=== PATIENT | male | born 1940 | race Caucasian/White ===

== ENCOUNTER → 2017-07-28 | Outpatient (CLI) | payer MEDICARE, OTHER ==
[2017-05-23 13:44] VITALS: BMI 23.7
[~2017-07-28] MED LIST: AMLO-96 PO; AMOX875T60; APPLE CIDER VINEGAR; ASCO-599 PO; BILB100C2 PO; CALC250T7 PO; CALC500T76 PO; CEPH-13 PO; CLOB15GE7 TP; CLON-327 PO; COD1CAPS39 PO; ENOX80DI8 SQ; FLAX100030 PO; FLAX100038 PO; FLU180SY9 IM; FOLI-68 PO; GARL500C11 PO; GINK60CA11 PO; GLUC100026 PO; GLUC500C29 PO; GREE250C4 PO; HERBS; HYDR-385 PO; HYDR-4225 PO; INDO-1 PO; INDO75CA PO; LEVO75TA68 PO; LOR5 PO; METO-253 PO; METO-259 PO; MILK THISTLE300 MG PO; MILK500C2 PO; MULT-885 PO; MULT1CAP41 PO; MULT1TAB54 PO; MUPI15CR10 TP; OMEP-137; PANT40TA65 PO; SALM1CAP3 PO; SAW500CA10 PO; SERT25TA90 PO; THIA100T62 PO; TRIA15OI20 TP; TURM500C7 PO; VIT1CAPS29 PO; VITA1CAP50 PO; WAR5 PO; ZINC1CAP PO; [UNRECOGNIZED DRUG - CODE] PO; [UNRECOGNIZED DRUG - CODE] PO; [UNRECOGNIZED DRUG - CODE] PO; [UNRECOGNIZED DRUG - CODE] PO; [UNRECOGNIZED DRUG - CODE] TP; [UNRECOGNIZED DRUG - OTHER]
[2017-07-28 10:12] LABS: PLATELET COUNT, AUTOMATED 236 K/uL (150-450)
== END ==
LOC: LAB 09:49
PROVIDERS: ATTEND Internal Medicine
DX: I10 Essential (primary) hypertension (principal); E03.9 Hypothyroidism, unspecified; F41.8 Other specified anxiety disorders; I83.009 Varicose veins of unspecified lower extremity with ulcer of unspecified site; F32.9 Major depressive disorder, single episode, unspecified
CPT/HCPCS: 36415; 82040; 82247; 82310; 82374; 82435; 82565; 82947; 84075; 84132; 84155; 84295; 84439; 84443; 84450; 84460; 84520; 85025

== ENCOUNTER → 2017-09-07 | Outpatient (CLI) | payer MEDICARE, OTHER ==
[2017-05-23 13:44] VITALS: BMI 23.7
== END ==
LOC: LAB 16:21
PROVIDERS: ATTEND Nurse Practitioner
DX: C44.310 Basal cell carcinoma of skin of unspecified parts of face (principal)
CPT/HCPCS: 88305

== ENCOUNTER 2017-12-01 00:54 | Emergency (ER) | payer MEDICARE, OTHER ==
[2017-05-23 13:44] VITALS: Wt 72.6 kg
[2017-12-01] MEDS: DEXTROSE 50% 50 ML SYR ONE (01:05)
[2017-12-01] MEDS ORDERED: NS(*) 0.9% 1000 ML BAG 1,000 ML IV ONE (01:10)
[2017-12-01 01:13] LABS: PLATELET COUNT, AUTOMATED 173 K/uL (150-450)
[2017-12-01] MEDS ORDERED: DEXTROSE 50% 50 ML SYR IVP ONE (01:15)
[2017-12-01 01:23] LABS: INR 1.03
[2017-12-01] MEDS ORDERED: DIPHTH/TETANUS/ACEL. PERTUSSIS IM ONLY ONE (01:25)
--- NOTE | 2017-12-01 01:25 | ER Report ---
History and Physical Time Seen By MD: 01:00 HPI/ROS CHIEF COMPLAINT: fall with head injury HISTORY OF PRESENT ILLNESS: This is a 77 year old male. He fell tonight. He does not know what happened, just got dizzy and fell. He has been drinking. He has hematoma and swelling on his forehead on the right and around his right eye with laceration. He walked out of his house with EMS. EMS was concerned about one pupil being larger than the other. He was alert and oriented x4 for them. He denies recent illness. He has a headache, but no other complaints. He can move all extremities and normal sensation and strength. He has no neck or back pain. Allergies: Coded Allergies: No Known Allergies (Verified Allergy, Mild, 12/01/17) Uncoded Allergies: SILK (Allergy, Mild, RASH, 03/29/10) Home Meds Active Scripts Triamcinolone Acetonide 0.1% Oint 15 Gm Tube (TRIAMCINOLONE ACETONIDE 0.1% 15 GM TUBE) 15 Gm Oint...g., 30 GM TP BID for 30 Days, #1 TUBE 2 Refills Use to legs 10-14 days twice a day then DC and use moisturizers. Do not use on face, neck, axillae, or groin. Prov:SHON MEDRANO 07/20/17 Hydroxyzine Hcl (HYDROXYZINE HCL) 25 Mg Tablet, 25 MG PO TID Y for ITCHING, #90 TAB 1 Refill Prov:EDITH LOPEZ MD 07/04/17 Sertraline Hcl (SERTRALINE HCL) 25 Mg Tablet, 1 TAB PO QDAY, #90 TAB 1 Refill Prov:EDITH LOPEZ MD 06/27/17 Multivitamin (MULTI-VITAMIN DAILY) 1 Each Tablet, 1 EACH PO QDAY, #30 TAB Prov:EDITH LOPEZ MD 05/31/17 Reviewed Nurses Notes: Yes Hx Smoking: Yes Smoking Status: Light Tobacco Smoker Hx Substance Use Disorder: No Hx Alcohol Use: Yes Constitutional Vital Sign - Last 24 Hours 12/01/17 12/01/17 12/01/17 12/01/17 01:03 01:10 01:15 01:16 Temp 97.8 Pulse 56 48 Resp 10 14 B/P (MAP) 159/99 (119) 168/99 (122) 158/85 (109) 158/85 Pulse Ox 93 93 O2 Delivery Room Air 12/01/17 12/01/17 12/01/17 12/01/17 01:20 01:25 01:26 01:30 Pulse 50 Resp 8 B/P (MAP) 148/88 (108) 138/92 (107) 156/83 (107) Pulse Ox 97 O2 Flow Rate 2.0 12/01/17 12/01/17 12/01/17 12/01/17 01:35 01:40 01:45 01:50 Pulse 46 Resp 13 B/P (MAP) 140/86 (104) 143/78 (99) 145/94 (111) 148/78 (101) Pulse Ox 96 12/01/17 12/01/17 12/01/17 12/01/17 01:55 02:00 02:05 02:10 Pulse 47 Resp 28 B/P (MAP) 133/70 (91) 129/82 (98) 157/101 (119) 159/88 (111) Pulse Ox 95 12/01/17 12/01/17 12/01/17 12/01/17 02:17 02:30 02:35 02:40 Pulse 44 47 Resp 14 15 B/P (MAP) 152/85 (107) 125/75 (92) 119/70 (86) 100/83 (89) Pulse Ox 95 95 O2 Delivery Nasal Cannula O2 Flow Rate 2 12/01/17 02:45 Pulse 45 B/P (MAP) 110/80 (90) Pulse Ox 94 Physical Exam General Appearance: [The patient is alert.] [No immediate need for airway protection.] [No acute distress.] [Non-toxic in appearance.] [ ] [Eyes:] [Pupils are equal, round.] [Reactive to light.] [No pallor, injection or icterus.] [Extraocular movements are intact.] [ ] [ENT:] [Mucous membranes are moist.] [Normal oral mucosa.] [Posterior oropharynx is normal.] [Normal nasal mucosa.] [Normal tympanic membranes and canals.] [ ] Neck: [Supple and non tender.] [No lymphadenopathy.] Respiratory: [Breathing easily and unlabored.] [Lungs are clear to auscultation. ] [There are no retractions or accessory muscle use.] Cardiovascular: [Regular rate and rhythm.] [No murmurs, gallops or rubs.] [ Normal capillary refill.] [No edema.] [No carotid bruits.] [ ] Gastrointestinal: [Abdomen is soft and non tender.] [Nondistended.] [No rebound or guarding.] [No masses or organomegaly.] [Normal active bowel sounds. ] [No costovertebral angle tenderness with percussion.] [Genitourinary:] [ ] [Neurological:] [Alert and oriented x3.] [Cranial nerves II through XII show no acute deficits on my exam.] [No focal neurologic deficits in the extremities.] [ ] [Skin:] [Warm and dry.] [No rashes.] [Musculoskeletal:] [Extremities are nontender.] [Full range of motion.] [No tenderness in palpation of the cervical, thoracic and lumbar spine.] [ ] [DIFFERENTIAL DIAGNOSIS: After history and physical exam, differential diagnosis was considered for] [ ] Medical Decision Making Data Points Result Diagram: 12/01/17 0056 12/01/17 0056 Laboratory Hematology Test 12/01/17 00:56 12/01/17 02:13 12/01/17 02:15 Red Blood Count 4.48 M/uL (4.00-5.60) Mean Corpuscular Volume 103.6 fL (80.0-96.0) Mean Corpuscular Hemoglobin 37.2 pg (26.0-33.0) Mean Corpuscular Hemoglobin Concent 35.9 g/dL (32.0-36.0) Red Cell Distribution Width 14.5 % (11.5-14.5) Mean Platelet Volume 7.5 fL (7.2-11.1) Neutrophils (%) (Auto) 58.4 % (39.4-72.5) Lymphocytes (%) (Auto) 26.8 % (17.6-49.6) Monocytes (%) (Auto) 9.5 % (4.1-12.4) Eosinophils (%) (Auto) 4.3 % (0.4-6.7) Basophils (%) (Auto) 1.0 % (0.3-1.4) Nucleated RBC Relative Count (auto) 0.2 /100WBC Neutrophils # (Auto) 2.9 K/uL (2.0-7.4) Lymphocytes # (Auto) 1.3 K/uL (1.3-3.6) Monocytes # (Auto) 0.5 K/uL (0.3-1.0) Eosinophils # (Auto) 0.2 K/uL (0.0-0.5) Basophils # (Auto) 0.1 K/uL (0.0-0.1) Nucleated RBC Absolute Count (auto) 0.01 K/uL Peripheral Blood Smear No Y/N Prothrombin Time 13.5 seconds (12.0-14.4) Prothromb Time International Ratio 1.03 Activated Partial Thromboplast Time 31 seconds (23-35) Sodium Level 129 mmol/L (137-145) Potassium Level 4.6 mmol/L (3.5-5.0) Chloride Level 90 mmol/L (98-107) Carbon Dioxide Level 22 mmol/L (22-30) Blood Urea Nitrogen 15 mg/dl (9-21) Creatinine 0.90 mg/dl (0.66-1.25) Glomerular Filtration Rate Calc > 60.0 Random Glucose 83 mg/dl (75-110) Calcium Level 9.1 mg/dl (8.4-10.2) Total Bilirubin 0.8 mg/dl (0.2-1.3) Aspartate Amino Transf (AST/SGOT) 50 U/L (0-35) Alanine Aminotransferase (ALT/SGPT) 44 U/L (0-56) Alkaline Phosphatase 123 U/L (0-126) Total Protein 7.1 gm/dl (6.3-8.2) Albumin 4.2 g/dl (3.5-5.0) Serum Alcohol 246 mg/dl Whole Blood Glucose 86 mg/DL (75-110) Urine Color Straw Urine Clarity Clear Urine pH 5.0 pH (4.8-9.5) Urine Specific [place] 1.004 Urine Protein Negative mg/dL (NEGATIVE) Urine Glucose (UA) Negative mg/dL (NEGATIVE) Urine Ketones Negative mg/dL (NEGATIVE) Urine Blood Negative (NEGATIVE) Urine Nitrite Negative (NEGATIVE) Urine Bilirubin Negative (NEGATIVE) Urine Urobilinogen Negative mg/dL (0.2-1.9) Urine Leukocyte Esterase Negative (NEGATIVE) Urine RBC None /HPF (0-2/HPF) Urine WBC None /HPF (0-5/HPF) Urine Squamous Epithelial Cells None /LPF (</=FEW) Urine Bacteria Negative /HPF (NONE-FEW) Urine Mucus None /HPF (NONE-FEW) Chemistry Test 12/01/17 00:56 12/01/17 02:13 12/01/17 02:15 White Blood Count 5.0 k/uL (4.5-11.0) Red Blood Count 4.48 M/uL (4.00-5.60) Hemoglobin 16.7 g/dL (14.0-18.0) Hematocrit 46.4 % (42.0-52.0) Mean Corpuscular Volume 103.6 fL (80.0-96.0) Mean Corpuscular Hemoglobin 37.2 pg (26.0-33.0) Mean Corpuscular Hemoglobin Concent 35.9 g/dL (32.0-36.0) Red Cell Distribution Width 14.5 % (11.5-14.5) Platelet Count 173 K/uL (150-450) Mean Platelet Volume 7.5 fL (7.2-11.1) Neutrophils (%) (Auto) 58.4 % (39.4-72.5) Lymphocytes (%) (Auto) 26.8 % (17.6-49.6) Monocytes (%) (Auto) 9.5 % (4.1-12.4) Eosinophils (%) (Auto) 4.3 % (0.4-6.7) Basophils (%) (Auto) 1.0 % (0.3-1.4) Nucleated RBC Relative Count (auto) 0.2 /100WBC Neutrophils # (Auto) 2.9 K/uL (2.0-7.4) Lymphocytes # (Auto) 1.3 K/uL (1.3-3.6) Monocytes # (Auto) 0.5 K/uL (0.3-1.0) Eosinophils # (Auto) 0.2 K/uL (0.0-0.5) Basophils # (Auto) 0.1 K/uL (0.0-0.1) Nucleated RBC Absolute Count (auto) 0.01 K/uL Peripheral Blood Smear No Y/N Prothrombin Time 13.5 seconds (12.0-14.4) Prothromb Time International Ratio 1.03 Activated Partial Thromboplast Time 31 seconds (23-35) Glomerular Filtration Rate Calc > 60.0 Calcium Level 9.1 mg/dl (8.4-10.2) Total Bilirubin 0.8 mg/dl (0.2-1.3) Aspartate Amino Transf (AST/SGOT) 50 U/L (0-35) Alanine Aminotransferase (ALT/SGPT) 44 U/L (0-56) Alkaline Phosphatase 123 U/L (0-126) Total Protein 7.1 gm/dl (6.3-8.2) Albumin 4.2 g/dl (3.5-5.0) Serum Alcohol 246 mg/dl Whole Blood Glucose 86 mg/DL (75-110) Urine Color Straw Urine Clarity Clear Urine pH 5.0 pH (4.8-9.5) Urine Specific [place] 1.004 Urine Protein Negative mg/dL (NEGATIVE) Urine Glucose (UA) Negative mg/dL (NEGATIVE) Urine Ketones Negative mg/dL (NEGATIVE) Urine Blood Negative (NEGATIVE) Urine Nitrite Negative (NEGATIVE) Urine Bilirubin Negative (NEGATIVE) Urine Urobilinogen Negative mg/dL (0.2-1.9) Urine Leukocyte Esterase Negative (NEGATIVE) Urine RBC None /HPF (0-2/HPF) Urine WBC None /HPF (0-5/HPF) Urine Squamous Epithelial Cells None /LPF (</=FEW) Urine Bacteria Negative /HPF (NONE-FEW) Urine Mucus None /HPF (NONE-FEW) Coagulation Test 12/01/17 00:56 Prothrombin Time 13.5 seconds Prothromb Time International Ratio 1.03 Activated Partial Thromboplast Time 31 seconds Toxicology Test 12/01/17 00:56 Serum Alcohol 246 mg/dl Urinalysis Test 12/01/17 02:15 Urine Color Straw Urine Clarity Clear Urine pH 5.0 pH (4.8-9.5) Urine Specific [place] 1.004 Urine Protein Negative mg/dL (NEGATIVE) Urine Glucose (UA) Negative mg/dL (NEGATIVE) Urine Ketones Negative mg/dL (NEGATIVE) Urine Blood Negative (NEGATIVE) Urine Nitrite Negative (NEGATIVE) Urine Bilirubin Negative (NEGATIVE) Urine Urobilinogen Negative mg/dL (0.2-1.9) Urine Leukocyte Esterase Negative (NEGATIVE) Urine RBC None /HPF (0-2/HPF) Urine WBC None /HPF (0-5/HPF) Urine Squamous Epithelial Cells None /LPF (</=FEW) Urine Bacteria Negative /HPF (NONE-FEW) Urine Mucus None /HPF (NONE-FEW) EKG/Imaging EKG Interpretation 12 lead EKG: Rhythm: Sinus bradycardia, first-degree AV block, rate 51 [place]: normal QRS: normal ST segments: Nonspecific, no ST elevation or depression noted Imaging HEAD CT: Indication: Injury. Technique: Contiguous axial sections were obtained from the base to the vertex without contrast enhancement. One of the following dose optimization techniques was utilized in the performance of this exam: Automated exposure control; adjustment of the mA and/ or kV according to the patient's size; or use of an iterative reconstruction technique. Specific details can be referenced in the facility's radiology CT exam operational policy. Comparison: 05/22/2017 Findings: There is no evidence of intra-axial or extra-axial hemorrhage. 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 No new focal areas of decreased or increased attenuation are identified. There is no evidence of mass, edema, or shift of the midline structures. The size, shape, and configuration of the ventricular system are normal. There is no evidence of fracture or other acute deformity. There is chronic opacification of the left maxillary sinus. The paranasal sinuses and mastoid air cells are otherwise unchanged. Impression: No acute deformity or significant change. Report Dictated By: Douglas Ruiz MD at 12/01/2017 1:14 AM ED Course/Re-evaluation Clinical Indication for ER IV: Hydration, IV Access ED Course The patient's alcohol level was elevated. Labs otherwise negative. Head CT negative as well. Laceration over the right eye in the eyebrow area was repaired with dermabond. Tetanus booster given. Decision to Disposition Date: December 01, 2017 Decision to Disposition Time: 02:43 Depart Departure Latest Vital Signs Vital Signs Date Time Temp Pulse Resp B/P (MAP) Pulse Ox O2 Delivery O2 Flow Rate FiO2 12/01/17 02:45 45 110/80 (90) 94 12/01/17 02:30 15 12/01/17 02:17 Nasal Cannula 2 12/01/17 01:16 97.8 Impression: Primary Impression: Fall Additional Impressions: Alcohol intoxication Eyebrow laceration Condition: Improved Disposition: HOME OR SELF-CARE Referrals: EDITH LOPEZ MD (PCP) Patient Instructions: Alcohol Intoxication (ED), Laceration Without Closure (ED ) Problem Qualifiers Primary Impression: Fall Encounter type: initial encounter Qualified Codes: W19.XXXA - Unspecified fall, initial encounter Additional Impressions: Alcohol intoxication Complication of substance-induced condition: uncomplicated Qualified Codes: F10.920 - Alcohol use, unspecified with intoxication, uncomplicated Eyebrow laceration Encounter type: initial encounter Laterality: right Qualified Codes: S01.111A - Laceration without foreign body of right eyelid and periocular area, initial encounter JEFFRY SOLIZ MD December 01, 2017 01:25
--- NOTE | 2017-12-01 01:39 | EKG ---
FACILITY: [facility] PATIENT NAME: JEROMY COX : [id number] MR: [id number] V: [id number] EXAM DATE: ORDERING PHYSICIAN: JEFFRY SOLIZ TECHNOLOGIST: LEEANNE Test Reason : FALL Blood Pressure : / mmHG Vent. Rate : 051 BPM Atrial Rate : 051 BPM P-R Int : 322 ms QRS Dur : 084 ms QT Int : 476 ms P-R-T Axes : 010 -09 050 degrees QTc Int : 438 ms Sinus bradycardia with 1st degree AV block Nonspecific ST abnormality Abnormal ECG Similar to previous EKG 05/22/17 Confirmed by YOSI LARSON ([id number] on 12/01/2017 6:19:56 AM Referred By: Confirmed By:YOSI LARSON
--- NOTE | 2017-12-01 02:44 | RADIOLOGY IMAGING REPORT ---
FACILITY: [facility] PATIENT NAME: Kenny Billings : 1940 MR: [id number] V: [id number] EXAM DATE: ORDERING PHYSICIAN: JEFFRY SOLIZ TECHNOLOGIST: Location: [facility] Patient: Kenny Billings : 1940 Visit/Account:[id number] Date of Sevice: 12/01/[address]: Indication: Injury. Technique: Contiguous axial sections were obtained from the base to the vertex without contrast enhan cement. One of the following dose optimization techniques was utilized in the performance of this exam: Autom ated exposure control; adjustment of the mA and/or kV according to the patient's size; or use of an i terative reconstruction technique. Specific details can be referenced in the facility's radiology CT exam operational policy. Comparison: 05/22/2017 Findings: There is no evidence of intra-axial or extra-axial hemorrhage. There is chronic cerebral co rtical atrophy and periventricular white matter disease. No new focal areas of decreased or increased attenuation are identified. There is no evidence of mass, edema, or shift of the midline structures. The size, shape, and configuration of the ventricular system are normal. There is no evidence of fra cture or other acute deformity. There is chronic opacification of the left maxillary sinus. The paran garcia sinuses and mastoid air cells are otherwise unchanged. Impression: No acute deformity or significant change. Report Dictated By: Douglas Ruiz MD at 12/01/2017 1:14 AM Report E-Signed By: Douglas Ruiz MD at 12/01/2017 1:19 AM [id number]
[2017-12-01 02:45] VITALS: BP 110/80
== END 2017-12-01 03:00 | disposition home or self-care (01) ==
LOC: ER 00:58
DX: F10.920 Alcohol use, unspecified with intoxication, uncomplicated (principal); S01.111A Laceration without foreign body of right eyelid and periocular area, initial encounter; W18.30XA Fall on same level, unspecified, initial encounter; S09.90XA Unspecified injury of head, initial encounter; R00.1 Bradycardia, unspecified; I44.0 Atrioventricular block, first degree
CPT/HCPCS: 12013; 36416; 70450; 81001; 82948; 85025; 85610; 85730; 90715; 93005; 99284; G0480; J7030; 80320; 82040; 82247; 82310; 82374; 82435; 82565; 82947; 84075; 84132; 84155; 84295; 84450; 84460; 84520; 90471; 96361; 96374

== ENCOUNTER → 2017-12-01 | Outpatient (CLI) | payer MEDICARE, OTHER ==
[2017-05-23 13:44] VITALS: BMI 23.7
[~2017-12-01] MED LIST changes: +[UNRECOGNIZED DRUG - CODE] PO; -[UNRECOGNIZED DRUG - CODE] PO
== END ==
LOC: AMB 00:26
PROVIDERS: ATTEND Nurse Practitioner
DX: F10.129 Alcohol abuse with intoxication, unspecified (principal); E16.2 Hypoglycemia, unspecified; R03.0 Elevated blood-pressure reading, without diagnosis of hypertension
CPT/HCPCS: A0425; A0427

== ENCOUNTER 2018-01-24 16:13 | Inpatient (IN) | payer MEDICARE, OTHER ==
[~2018-01-24] VITALS: Ht 177.8 cm; Wt 71.4 kg
--- NOTE | 2018-01-24 16:30 | ER Report ---
History and Physical Time Seen By : 16:24 Hx. of Stated Complaint: PT PRESENTS WITH HX OF FALLING A FEW DAYS AGO. STATES HAS BEEN DRINKING MORE THAN USUAL HPI/ROS CHIEF COMPLAINT: Fall HISTORY OF PRESENT ILLNESS: This is a 77-year-old male who presents to the emergency department, with his sister for a fall. Patient states that about 2 days ago he had "a lot to drink" and "blacked out", doesn't remember falling. Since then he's had increased shortness of breath right-sided chest pain, concerned about broken ribs significant amount of bruising to the right chest down to the right lower quadrant. Contusion, abrasion and skin tear to the right forearm. Denies aches, chills, nausea or vomiting. No dysuria. Patient also states he drinks alcohol almost every day, states his last drink was yesterday morning. REVIEW OF SYSTEMS: Constitutional: No fever, no chills. Eyes: No discharge. ENT: No sore throat. Cardiovascular: No chest pain, no palpitations. Respiratory: As above. Gastrointestinal: No abdominal pain, no vomiting. Genitourinary: No hematuria. Musculoskeletal: As above. Skin: As above. Neurological: As above. Allergies: Coded Allergies: No Known Allergies (Verified Allergy, Mild, 12/01/17) Uncoded Allergies: DONY (Allergy, Mild, RASH, 03/29/10) Home Meds Active Scripts Lidocaine (Lidocaine) 5 % Adh..patch, 1 PATCH TOP Q12H Y for prn, #5 PATCH One patch to the affected area, on for 12 hours off for 12 hours. Prov:MAEVE CALDERON REEL SLITTER-BC 01/24/18 Discontinued Scripts Triamcinolone Acetonide 0.1% Oint 15 Gm Tube (TRIAMCINOLONE ACETONIDE 0.1% 15 GM TUBE) 15 Gm Oint...g., 30 GM TP BID for 30 Days, #1 TUBE 2 Refills Use to legs 10-14 days twice a day then DC and use moisturizers. Do not use on face, neck, axillae, or groin. Prov:SHON MEDRANO NPC 07/20/17 Hydroxyzine Hcl (HYDROXYZINE HCL) 25 Mg Tablet, 25 MG PO TID Y for ITCHING, #90 TAB 1 Refill Prov:EDITH MORALES MD 07/04/17 Sertraline Hcl (SERTRALINE HCL) 25 Mg Tablet, 1 TAB PO QDAY, #90 TAB 1 Refill Prov:EDITH MORALES MD 06/27/17 Multivitamin (MULTI-VITAMIN DAILY) 1 Each Tablet, 1 EACH PO QDAY, #30 TAB Prov:EDITH MORALES MD 05/31/17 Past Medical/Surgical History Patient has a past medical and surgical history of crucial TIA, migraines, DVT, hypertension, Vincent's esophagus, GERD, left total knee, arthritis, fracture ribs, ankle, right femur, wears glasses, alcohol abuse, depression, sleep disturbances, appendectomy, EGD, tonsillectomy. Hx Smoking: Yes Smoking Status: Light Tobacco Smoker Hx Substance Use Disorder: No Hx Alcohol Use: Yes Constitutional Vital Sign - Last 24 Hours 01/24/18 01/24/18 01/24/18 01/24/18 16:21 16:22 16:30 16:43 Temp 98.0 Pulse 74 63 Resp 20 B/P (MAP) 142/83 142/83 (102) 132/80 (97) Pulse Ox 83 93 O2 Delivery Room Air 01/24/18 01/24/18 01/24/18 01/24/18 17:00 17:13 17:30 18:00 Pulse 57 B/P (MAP) 128/69 (88) 132/73 (92) 146/80 (102) Pulse Ox 94 01/24/18 01/24/18 01/24/18 01/24/18 18:05 18:20 18:30 18:35 Pulse ??? 62 65 B/P (MAP) 146/82 (103) Pulse Ox 95 94 94 01/24/18 01/24/18 01/24/18 01/24/18 18:50 19:00 19:05 19:10 Pulse 60 63 66 B/P (MAP) 159/85 (109) Pulse Ox 93 94 94 01/24/18 01/24/18 01/24/18 01/24/18 20:00 20:09 20:15 20:45 Pulse 68 71 71 B/P (MAP) 155/100 (118) Pulse Ox 83 82 89 84 O2 Delivery Room Air 01/24/18 01/24/18 20:47 20:48 Temp 99.7 Pulse 73 Physical Exam General Appearance: The patient is alert, has no immediate need for airway protection and no signs of toxicity. Eyes: Pupils equal and round no pallor or injection. ENT, Mouth: Mucous membranes are moist. Respiratory: There are no retractions, lungs are clear to auscultation. Cardiovascular: Regular rate and rhythm, no murmurs, clicks or rubs. Gastrointestinal: Abdomen is firm on right upper quadrant with significant tenderness in the right upper, into the right lower quadrant. No masses, bowel sounds normal. Neurological: Alert and oriented 4. Moving all extremities. Following all commands. No focal neuro deficits. Skin: Warm and dry, no rashes. Contusions, abrasions and skin tear to the right forearm. Contusions, purple in color, to the right chest along the lateral pectoralis down into the right upper and lower abdomen. Musculoskeletal: Neck is supple non tender. Right sided chest pain with palpation along the right lateral pectoralis down to the right costal margin. Extremities are nontender, nonswollen and have full range of motion. DIFFERENTIAL DIAGNOSIS: After history and physical exam differential diagnosis was considered for contusion, rib fracture, pneumothorax, hepatic injury and kidney injury. Medical Decision Making Data Points Result Diagram: 01/24/18 1659 01/24/18 1659 Laboratory Hematology Test 01/24/18 16:59 01/24/18 18:30 Red Blood Count 4.14 M/uL (4.00-5.60) Mean Corpuscular Volume 105.9 fL (80.0-96.0) Mean Corpuscular Hemoglobin 38.2 pg (26.0-33.0) Mean Corpuscular Hemoglobin Concent 36.1 g/dL (32.0-36.0) Red Cell Distribution Width 14.3 % (11.5-14.5) Mean Platelet Volume 7.2 fL (7.2-11.1) Neutrophils (%) (Auto) 75.7 % (39.4-72.5) Lymphocytes (%) (Auto) 12.6 % (17.6-49.6) Monocytes (%) (Auto) 9.4 % (4.1-12.4) Eosinophils (%) (Auto) 1.1 % (0.4-6.7) Basophils (%) (Auto) 1.2 % (0.3-1.4) Nucleated RBC Relative Count (auto) 0.1 /100WBC Neutrophils # (Auto) 5.0 K/uL (2.0-7.4) Lymphocytes # (Auto) 0.8 K/uL (1.3-3.6) Monocytes # (Auto) 0.6 K/uL (0.3-1.0) Eosinophils # (Auto) 0.1 K/uL (0.0-0.5) Basophils # (Auto) 0.1 K/uL (0.0-0.1) Nucleated RBC Absolute Count (auto) 0.01 K/uL Sodium Level 137 mmol/L (137-145) Potassium Level 4.4 mmol/L (3.5-5.0) Chloride Level 98 mmol/L (98-107) Carbon Dioxide Level 25 mmol/L (22-30) Blood Urea Nitrogen 15 mg/dl (9-21) Creatinine 1.00 mg/dl (0.66-1.25) Glomerular Filtration Rate Calc > 60.0 Random Glucose 96 mg/dl (75-110) Calcium Level 8.2 mg/dl (8.4-10.2) Total Bilirubin 0.7 mg/dl (0.2-1.3) Aspartate Amino Transf (AST/SGOT) 38 U/L (0-35) Alanine Aminotransferase (ALT/SGPT) 31 U/L (0-56) Alkaline Phosphatase 119 U/L (0-126) Total Protein 6.4 g/dl (6.3-8.2) Albumin 3.6 g/dl (3.5-5.0) Serum Alcohol 111 mg/dl Urine Color Yellow Urine Clarity Clear Urine pH 6.0 pH (4.8-9.5) Urine Specific [place] 1.023 Urine Protein Negative mg/dL (NEGATIVE) Urine Glucose (UA) Negative mg/dL (NEGATIVE) Urine Ketones Negative mg/dL (NEGATIVE) Urine Blood Negative (NEGATIVE) Urine Nitrite Negative (NEGATIVE) Urine Bilirubin Negative (NEGATIVE) Urine Urobilinogen Negative mg/dL (0.2-1.9) Urine Leukocyte Esterase Negative (NEGATIVE) Urine RBC <1 /HPF (0-2/HPF) Urine WBC <1 /HPF (0-5/HPF) Urine Squamous Epithelial Cells None /LPF (</=FEW) Urine Bacteria Negative /HPF (NONE-FEW) Urine Mucus None /HPF (NONE-FEW) Chemistry Test 01/24/18 16:59 01/24/18 18:30 White Blood Count 6.6 k/uL (4.5-11.0) Red Blood Count 4.14 M/uL (4.00-5.60) Hemoglobin 15.8 g/dL (14.0-18.0) Hematocrit 43.8 % (42.0-52.0) Mean Corpuscular Volume 105.9 fL (80.0-96.0) Mean Corpuscular Hemoglobin 38.2 pg (26.0-33.0) Mean Corpuscular Hemoglobin Concent 36.1 g/dL (32.0-36.0) Red Cell Distribution Width 14.3 % (11.5-14.5) Platelet Count 191 K/uL (150-450) Mean Platelet Volume 7.2 fL (7.2-11.1) Neutrophils (%) (Auto) 75.7 % (39.4-72.5) Lymphocytes (%) (Auto) 12.6 % (17.6-49.6) Monocytes (%) (Auto) 9.4 % (4.1-12.4) Eosinophils (%) (Auto) 1.1 % (0.4-6.7) Basophils (%) (Auto) 1.2 % (0.3-1.4) Nucleated RBC Relative Count (auto) 0.1 /100WBC Neutrophils # (Auto) 5.0 K/uL (2.0-7.4) Lymphocytes # (Auto) 0.8 K/uL (1.3-3.6) Monocytes # (Auto) 0.6 K/uL (0.3-1.0) Eosinophils # (Auto) 0.1 K/uL (0.0-0.5) Basophils # (Auto) 0.1 K/uL (0.0-0.1) Nucleated RBC Absolute Count (auto) 0.01 K/uL Glomerular Filtration Rate Calc > 60.0 Calcium Level 8.2 mg/dl (8.4-10.2) Total Bilirubin 0.7 mg/dl (0.2-1.3) Aspartate Amino Transf (AST/SGOT) 38 U/L (0-35) Alanine Aminotransferase (ALT/SGPT) 31 U/L (0-56) Alkaline Phosphatase 119 U/L (0-126) Total Protein 6.4 g/dl (6.3-8.2) Albumin 3.6 g/dl (3.5-5.0) Serum Alcohol 111 mg/dl Urine Color Yellow Urine Clarity Clear Urine pH 6.0 pH (4.8-9.5) Urine Specific [place] 1.023 Urine Protein Negative mg/dL (NEGATIVE) Urine Glucose (UA) Negative mg/dL (NEGATIVE) Urine Ketones Negative mg/dL (NEGATIVE) Urine Blood Negative (NEGATIVE) Urine Nitrite Negative (NEGATIVE) Urine Bilirubin Negative (NEGATIVE) Urine Urobilinogen Negative mg/dL (0.2-1.9) Urine Leukocyte Esterase Negative (NEGATIVE) Urine RBC <1 /HPF (0-2/HPF) Urine WBC <1 /HPF (0-5/HPF) Urine Squamous Epithelial Cells None /LPF (</=FEW) Urine Bacteria Negative /HPF (NONE-FEW) Urine Mucus None /HPF (NONE-FEW) Toxicology Test 01/24/18 16:59 Serum Alcohol 111 mg/dl Urinalysis Test 01/24/18 18:30 Urine Color Yellow Urine Clarity Clear Urine pH 6.0 pH (4.8-9.5) Urine Specific [place] 1.023 Urine Protein Negative mg/dL (NEGATIVE) Urine Glucose (UA) Negative mg/dL (NEGATIVE) Urine Ketones Negative mg/dL (NEGATIVE) Urine Blood Negative (NEGATIVE) Urine Nitrite Negative (NEGATIVE) Urine Bilirubin Negative (NEGATIVE) Urine Urobilinogen Negative mg/dL (0.2-1.9) Urine Leukocyte Esterase Negative (NEGATIVE) Urine RBC <1 /HPF (0-2/HPF) Urine WBC <1 /HPF (0-5/HPF) Urine Squamous Epithelial Cells None /LPF (</=FEW) Urine Bacteria Negative /HPF (NONE-FEW) Urine Mucus None /HPF (NONE-FEW) EKG/Imaging Imaging Location: [facility] - [place], [place] Patient: Kenny Billings : 1940 Visit/Account:[id number] Date of Sevice: 01/24/[address] scan without contrast HISTORY: Fall 3 days ago COMPARISONS: December 01, 2017 TECHNIQUE: Non-contrast head CT was performed with sagittal and coronal reformations. One of the following dose optimization techniques was utilized in the performance of this exam: automated exposure control; adjustment of the mA and/ or kV according to patient size; or use of iterative reconstruction technique. Specific details can be referenced in the facility's radiology CT exam operational policy. FINDINGS: There is no intracranial hemorrhage, hydrocephalus or midline shift. The basal cisterns, kearney-white differentiation, and convexity sulci are maintained. Normal orbital soft tissues. Unchanged moderate patchy white matter hypoattenuation. Clear mastoid air cells. Moderate left maxillary sinus mucosal thickening. Chronic right lamina papyracea fracture deformity as before. No acute fracture. IMPRESSION: No acute intracranial abnormality. Moderate unchanged chronic small vessel ischemic change. Unchanged chronic right lamina papyracea fracture deformity. Report Dictated By: Andrae Lynn MD at 01/24/2018 6:29 PM Report E-Signed By: Andrae Lynn MD at 01/24/2018 6:34 PM WSN:[id number] EXAMINATION: CT chest, abdomen and pelvis with IV contrast HISTORY: Fall, right chest pain, abdomen pain TECHNIQUE: CT was obtained through the chest, abdomen and pelvis with intravenous contrast. Sagittal and coronal MPR reformatted images generated. 75 mL isovue 370 was injected. One of the following dose optimization techniques was utilized in the performance of this exam: automated exposure control; adjustment of the mA and/ or kV according to patient size; or use of iterative reconstruction technique. Specific details can be referenced in the facility's radiology CT exam operational policy. COMPARISON: Chest CT May 22, 2017 FINDINGS: Chest: Lower neck: Normal. Heart /pericardium/aorta/great vessels: Mildly enlarged heart, mild coronary artery calcification. Mediastinum: Large unchanged gastric paraesophageal hernia. Unchanged mild diffuse esophageal wall thickening. Lymph node assessment: Normal. Pleura: Trace new right pleural fluid. Lungs: Unchanged medial right upper lobe scarring. New right middle lobe subsegmental atelectasis. Medial right middle lobe scarring similar to prior. New subsegmental atelectasis in the right lower lobe. Mild new right lower lobe probable atelectasis, image 78. . Chest wall: Normal. Musculoskeletal: Left posterior 11th chronic rib fracture deformity. Multiple chronic right rib fracture deformities as before. Acute nondisplaced right lateral ninth and 10th rib fractures. Abdomen/pelvis: Spleen: Normal. Adrenal glands: Normal. Pancreas: Normal. Kidneys: Bilateral cysts. Mild left renal pelvis and left intrarenal collecting system dilatation. Gallbladder: Normal. Liver: Left hepatic lobe cyst. Vessels: Normal for age. Lymph node assessment: Normal. Bowel including small bowel, colon and appendix: Gastric hernia as described above. Normal small bowel. Appendix not visualized. Normal colon. Peritoneum / retroperitoneum / mesentery: Normal. Pelvic structures: Normal bladder, enlarged prostate gland measures 6.2 cm transverse. Normal rectum. No pelvic fluid or adenopathy. Body wall: Normal. Musculoskeletal: No fracture or osseous destruction. Moderate L2-3 disc space degeneration and moderate to severe L4-5 and L5-S1 facet arthropathy. IMPRESSION: 1. Acute nondisplaced right lateral ninth and 10th rib fractures. 2. Trace right new pleural fluid. 3. No additional acute abnormality in the chest, abdomen or pelvis. 4. Large unchanged gastric paraesophageal hernia. 5. Enlarged prostate gland measures 6.2 cm. Report Dictated By: Andrae Lynn MD at 01/24/2018 6:39 PM Report E-Signed By: Andrae yLnn MD at 01/24/2018 6:56 PM WSN:[id number] EXAMINATION: CT Cervical spine without intravenous contrast HISTORY: Fall COMPARISON: None. TECHNIQUE: Axial images were obtained from the skull base through the upper thoracic spine without IV contrast administration. Coronal and sagittal reformatted images were generated from the axial source data. One of the following dose optimization techniques was utilized in the performance of this exam: automated exposure control; adjustment of the mA and/ or kV according to patient size; or use of iterative reconstruction technique. Specific details can be referenced in the facility's radiology CT exam operational policy. FINDINGS: Vertebral bodies and posterior elements: Normal vertebral body heights. No fracture or osseous destruction. Alignment: Slight retrolisthesis of C3 on C4. Slight anterolisthesis of C5 on C6 and C7 on T1. Disc Spaces: Severe C3-4, C6-7 and C7-T1 disc space degeneration. Multilevel facet arthropathy. Multilevel degenerative foraminal narrowing. Soft tissues: Normal. Visualized upper chest: Normal. IMPRESSION: No acute fracture or acute abnormality. Report Dictated By: Andrae Lynn MD at 01/24/2018 6:34 PM Report E-Signed By: Andrae Lynn MD at 01/24/2018 6:39 PM WSN:[id number] ED Course/Re-evaluation Clinical Indication for ER IV: IV Access ED Course The patient was admitted to room. A history and physical were obtained. Differential diagnoses were considered. An IV was started. A CBC, CMP, UA were obtained. CBC showing MCV 105.9, chemistry showing AST 38, ALT 31 serum alcohol [address] of the head neck negative for any acute abnormalities. Chest abdomen pelvis CT showing acute nondisplaced right lateral 9th and 10th rib fractures, trace right new pleural fluid. I did review these results with the patient and his sister. As we were getting the patient ready for discharge, which the patient was agreeable to his oxygen saturation dropped to about 82% on room air. Patient was also shaky. I did order home oxygen therapy for the patient. The sister was concerned that the patient would not be able to manage his home oxygen therapy at home and was very concerned about his shakiness and inability to manage his care on his own. I did contact Dr. March, the hospitalist on-call as below he has accepted the patient into the hospitalist services and the patient will be admitted to the medical unit. The patient was agreeable with this plan of care and admitted to the medical unit. Patient was given a lidocaine patch for the right rib discomfort. 01/24/2018 8:41:25 pm I did speak with Dr. March, the on-call hospitalist regarding the patient's case as the sister is very concerned about having the patient go home, she doesn't feel that he is steady enough to manage the oxygen therapy at home, he is very shaky in the emergency department. Patient is willing to stay in the hospital if indicated. Patient is unsure if he he will be able to manage his therapy at home. 01/24/2018 9:13:[address] March did come and evaluate the patient, he has agreed to admit the patient to the hospitalist service on the medical floor for right rib fractures, hypoxia and unsteadiness. Decision to Disposition Date: Jan 24, 2018 Decision to Disposition Time: 21:14 Depart Departure Latest Vital Signs Vital Signs Date Time Temp Pulse Resp B/P (MAP) Pulse Ox O2 Delivery O2 Flow Rate FiO2 01/24/18 20:48 73 01/24/18 20:47 99.7 01/24/18 20:45 155/100 (118) 84 01/24/18 20:09 Room Air 01/24/18 16:21 20 Impression: Primary Impression: Right rib fracture Additional Impressions: Alcohol abuse Fall Hypoxia Condition: Improved Disposition: Admitted from ER Referrals: EDITH MORALES MD (PCP) 5 Days New Scripts Lidocaine (Lidocaine) 5 % Adh..patch 1 PATCH TOP Q12H Y for prn, #5 PATCH One patch to the affected area, on for 12 hours off for 12 hours. Prov: MAEVE CALDERON-WARD 01/24/18 Departure Forms: ER Transition Record, Home Oxygen, Nebulizer RX, Durable Medical Equipment-Oxygen: Oxygen Concentrator, Portable Oxygen Gas Reason for Use/Diagnosis: Rib fracture(s), fall, hypoxia Start Date of the Order: Jan 24, 2018 Dosage or Concentration (if applicable) - LPM: 3 Route of Administration (if applicable): Nasal Cannula Frequency of Use: Continuous Duration Home O2 Required: 30 Duration Units: Days Room Air Oxygen Saturation: 82 ER Prescribing Physician's Name: Other NPI Numbers for Local ER MDs: Other Medications Reconciliation, Patient Portal Information Patient Instructions: Abuse of Alcohol (ED), Fall Prevention (ED), Rib Fracture (ED) Additional Instructions: Drink plenty of water. Get plenty of rest. Please avoid drinking alcohol. Use the lidocaine patch as needed for pain control, on for 12 hours off for 12 hours. If your watching television, every time a commercial comes on when she do cough and deep breathe 5 times. Use a pillow or a week as a splint when coughing or deep breathing. Be very cautious using ibuprofen for pain. Avoid using Tylenol as your liver has been damaged due to alcohol. Follow-up with Dr. Morales within one week. Return to the emergency department for any other concerns or worsening symptoms. Problem Qualifiers Primary Impression: Right rib fracture Encounter type: initial encounter Rib fracture type: multiple ribs Fracture type: closed Qualified Codes: S22.41XA - Multiple fractures of ribs , right side, initial encounter for closed fracture Additional Impressions: Fall Encounter type: initial encounter Qualified Codes: W19.XXXA - Unspecified fall, initial encounter MAEVE CALDERONP-BC Jan 24, 2018 16:30
[2018-01-24] MEDS ORDERED: IOPAMIDOL 76% 75 ML INFUS BTL 75 ML ONE (17:01)
[2018-01-24 17:20] LABS: PLATELET COUNT, AUTOMATED 191 K/uL (150-450)
--- NOTE | 2018-01-24 18:38 | RADIOLOGY IMAGING REPORT ---
FACILITY: [facility] - [place] PATIENT NAME: Kenny Billings : 1940 MR: [id number] V: [id number] EXAM DATE: ORDERING PHYSICIAN: MAEVE CALDERON TECHNOLOGIST: Location: [facility] Patient: Kenny Billings : 1940 Visit/Account:[id number] Date of Sevice: 01/24/[address] scan without contrast HISTORY: Fall 3 days ago COMPARISONS: December 01, 2017 TECHNIQUE: Non-contrast head CT was performed with sagittal and coronal reformations. One of the following dose optimization techniques was utilized in the performance of this exam: autom ated exposure control; adjustment of the mA and/or kV according to patient size; or use of iterative reconstruction technique. Specific details can be referenced in the facility's radiology CT exam ope rational policy. FINDINGS: There is no intracranial hemorrhage, hydrocephalus or midline shift. The basal cisterns, kearney-white differentiation, and convexity sulci are maintained. Normal orbital soft tissues. Unchanged moderate patchy white matter hypoattenuation. Clear mastoid air cells. Moderate left maxillary sinus mucosal thickening. Chronic right lamina papyr acea fracture deformity as before. No acute fracture. IMPRESSION: No acute intracranial abnormality. Moderate unchanged chronic small vessel ischemic change. Unchanged chronic right lamina papyracea fracture deformity. Report Dictated By: Andrae Lynn MD at 01/24/2018 6:29 PM Report E-Signed By: Andrae Lynn MD at 01/24/2018 6:34 PM WSN:[id number]
--- NOTE | 2018-01-24 18:43 | RADIOLOGY IMAGING REPORT ---
FACILITY: [facility] PATIENT NAME: Kenny Billings : 1940 MR: [id number] V: [id number] EXAM DATE: ORDERING PHYSICIAN: MAEVE CALDERON TECHNOLOGIST: Location: [facility] Patient: Kenny Billings : 1940 Visit/Account:[id number] Date of Sevice: 01/24/2018 EXAMINATION: CT Cervical spine without intravenous contrast HISTORY: Fall COMPARISON: None. TECHNIQUE: Axial images were obtained from the skull base through the upper thoracic spine without I V contrast administration. Coronal and sagittal reformatted images were generated from the axial sour ce data. One of the following dose optimization techniques was utilized in the performance of this exam: autom ated exposure control; adjustment of the mA and/or kV according to patient size; or use of iterative reconstruction technique. Specific details can be referenced in the facility's radiology CT exam ope rational policy. FINDINGS: Vertebral bodies and posterior elements: Normal vertebral body heights. No fracture or osseous destr uction. Alignment: Slight retrolisthesis of C3 on C4. Slight anterolisthesis of C5 on C6 and C7 on T1. Disc Spaces: Severe C3-4, C6-7 and C7-T1 disc space degeneration. Multilevel facet arthropathy. Multi level degenerative foraminal narrowing. Soft tissues: Normal. Visualized upper chest: Normal. IMPRESSION: No acute fracture or acute abnormality. Report Dictated By: Andrae Lynn MD at 01/24/2018 6:34 PM Report E-Signed By: Andrae Lynn MD at 01/24/2018 6:39 PM WSN:[id number]
--- NOTE | 2018-01-24 18:59 | RADIOLOGY IMAGING REPORT ---
[place] [facility] [place] NAME: Kenny Billings : 1940 MR: [id number] V: [id number] EXAM DATE: ORDERING PHYSICIAN: MAEVE CALDERON TECHNOLOGIST: Location: [facility] Patient: Kenny Billings : 1940 Visit/Account:[id number] Date of Sevice: 01/24/2018 EXAMINATION: CT chest, abdomen and pelvis with IV contrast HISTORY: Fall, right chest pain, abdomen pain TECHNIQUE: CT was obtained through the chest, abdomen and pelvis with intravenous contrast. Sagitt al and coronal MPR reformatted images generated. 75 mL isovue 370 was injected. One of the following dose optimization techniques was utilized in the performance of this exam: autom ated exposure control; adjustment of the mA and/or kV according to patient size; or use of iterative reconstruction technique. Specific details can be referenced in the facility's radiology CT exam ope rational policy. COMPARISON: Chest CT May 22, 2017 FINDINGS: Chest: Lower neck: Normal. Heart /pericardium/aorta/great vessels: Mildly enlarged heart, mild coronary artery calcification. Mediastinum: Large unchanged gastric paraesophageal hernia. Unchanged mild diffuse esophageal wall th ickening. Lymph node assessment: Normal. Pleura: Trace new right pleural fluid. Lungs: Unchanged medial right upper lobe scarring. New right middle lobe subsegmental atelectasis. M edial right middle lobe scarring similar to prior. New subsegmental atelectasis in the right lower lo be. Mild new right lower lobe probable atelectasis, image 78. . Chest wall: Normal. Musculoskeletal: Left posterior 11th chronic rib fracture deformity. Multiple chronic right rib frac ture deformities as before. Acute nondisplaced right lateral ninth and 10th rib fractures. Abdomen/pelvis: Spleen: Normal. Adrenal glands: Normal. Pancreas: Normal. Kidneys: Bilateral cysts. Mild left renal pelvis and left intrarenal collecting system dilatation. Gallbladder: Normal. Liver: Left hepatic lobe cyst. Vessels: Normal for age. Lymph node assessment: Normal. Bowel including small bowel, colon and appendix: Gastric hernia as described above. Normal small mak l. Appendix not visualized. Normal colon. Peritoneum / retroperitoneum / mesentery: Normal. Pelvic structures: Normal bladder, enlarged prostate gland measures 6.2 cm transverse. Normal rect um. No pelvic fluid or adenopathy. Body wall: Normal. Musculoskeletal: No fracture or osseous destruction. Moderate L2-3 disc space degeneration and modera te to severe L4-5 and L5-S1 facet arthropathy. IMPRESSION: 1. Acute nondisplaced right lateral ninth and 10th rib fractures. 2. Trace right new pleural fluid. 3. No additional acute abnormality in the chest, abdomen or pelvis. 4. Large unchanged gastric paraesophageal hernia. 5. Enlarged prostate gland measures 6.2 cm. Report Dictated By: Andrae Lynn MD at 01/24/2018 6:39 PM Report E-Signed By: Andrae Lynn MD at 01/24/2018 6:56 PM WSN:[id number]
[2018-01-24] MEDS ORDERED: LIDOCAINE 5% PATCH TP SCH (19:30)
[2018-01-24] MEDS ORDERED: LIDO700A19 TOP (19:33)
[2018-01-24] MEDS ORDERED: PATCH REMOVAL 1 EA TOP SCH (21:00)
[2018-01-24] MEDS ORDERED: INFLUENZA VIRUS VAC 0.5 ML SYR IM ONLY ONE (21:20)
[2018-01-24] MEDS ORDERED: amLODIPine BESYL(*) 5 MG TAB PO SCH (21:20)
[2018-01-24] MEDS ORDERED: oxyCODONE HCL 5 MG CAP PO PRN (21:20)
[2018-01-24] MEDS ORDERED: NAPROXEN 500 MG TAB PO PRN (21:20)
[2018-01-24] MEDS ORDERED: DIAZEPAM 10 MG TAB PO PRN (21:55)
--- NOTE | 2018-01-24 21:55 | History & Physical ---
History of Present Illness History of Present Illness 77yo male with a h/o alcohol abuse who was brought to the ER for right rib pain. He thinks that he had a fall about 2-3 days ago related to drinking alcohol. He doesn't remember the event, but only noticed the discomfort later. He doesn't report any head/neck/extremity pain. The pain is very severe made worse with deep breaths and some movements of the torso. His sister brought him in because she has noticed that he is more tremulous and seems to be less stable on his feet. He denies f/c/n/v/diarrhea. He has also noticed more swelling in his right ankle for possibly week. He has more difficulty getting his shoe on. History Problems: (1) Essential hypertension Status: Chronic (2) Hypothyroid Status: Chronic Home Meds Active Scripts Lidocaine (Lidocaine) 5 % Adh..patch, 1 PATCH TOP Q12H Y for prn, #5 PATCH One patch to the affected area, on for 12 hours off for 12 hours. Prov:MAEVE CALDERON TEAM MANAGER-BC 01/24/18 Discontinued Scripts Triamcinolone Acetonide 0.1% Oint 15 Gm Tube (TRIAMCINOLONE ACETONIDE 0.1% 15 GM TUBE) 15 Gm Oint...g., 30 GM TP BID for 30 Days, #1 TUBE 2 Refills Use to legs 10-14 days twice a day then DC and use moisturizers. Do not use on face, neck, axillae, or groin. Prov:SHON MEDRANO NPC 07/20/17 Hydroxyzine Hcl (HYDROXYZINE HCL) 25 Mg Tablet, 25 MG PO TID Y for ITCHING, #90 TAB 1 Refill Prov:EDITH LOPEZ MD 07/04/17 Sertraline Hcl (SERTRALINE HCL) 25 Mg Tablet, 1 TAB PO QDAY, #90 TAB 1 Refill Prov:EDITH LOPEZ MD 06/27/17 Multivitamin (MULTI-VITAMIN DAILY) 1 Each Tablet, 1 EACH PO QDAY, #30 TAB Prov:EDITH LOPEZ MD 05/31/17 Allergies: Coded Allergies: No Known Allergies (Verified Allergy, Mild, 12/01/17) Uncoded Allergies: SILK (Allergy, Mild, RASH, 03/29/10) Patient History: FH: Alzheimers disease MOTHER, , Age:89 FH: natural FATHER, , Age:92 Hx Smoking: Yes Smoking Status: Light Tobacco Smoker Caffeine Intake: Coffee Caffeine/Cups Per Day: 6-8 Hx Alcohol Use: Yes (UNKNOWN AMOUNT, BUT "QUITE A BIT") Hx Substance Use Disorder: No Review of Systems All Systems Reviewed/Normal: Yes, Except as Noted Exam Vital Signs Vital Signs Date Time Temp Pulse Resp B/P (MAP) Pulse Ox O2 Delivery O2 Flow Rate FiO2 01/24/18 20:48 73 01/24/18 20:47 99.7 01/24/18 20:45 155/100 (118) 84 01/24/18 20:09 Room Air 01/24/18 16:21 20 General Appearance: Alert, Awake, No Acute Distress Neuro: No Gross deficits, Other (He knows the month, year, where he is, why he is here, events of the last couple days. Slow to answer questions. Shuffling gait with ambulation) Eyes: PERRLA ENT: Moist Mucous Membranes Cardiovascular: Regular Rate and Rhythm (2/6 systolic murmur on LSB) Respiratory: Clear to Auscultation (but taking shallow breaths secondary to right rib pain) GI: Abd Soft and Non-Tender Extremities: Edema (R ankle with 1+ pitting edema. L ankle with trace pitting edema) Integumentary: No Jaundice, No Cyanosis Medical Decision Making Data Points Result Diagram: 01/24/18165801/24/181658 Item Value Date Time Total Bilirubin 0.7 mg/dl 01/24/181658 Aspartate Amino Transf (AST/SGOT) 38 U/L H 01/24/181658 Alanine Aminotransferase (ALT/SGPT) 31 U/L 01/24/181658 Alkaline Phosphatase 119 U/L 01/24/181658 Mean Corpuscular Volume 105.9 fL H 01/24/181658 Neutrophils (%) (Auto) 75.7 % H 01/24/181658 Lymphocytes (%) (Auto) 12.6 % L 01/24/181658 Monocytes (%) (Auto) 9.4 % 01/24/181658 Eosinophils (%) (Auto) 1.1 % 01/24/181658 Basophils (%) (Auto) 1.2 % 01/24/18 1659 Urine RBC <1 /HPF 01/24/18 1830 Urine WBC <1 /HPF 01/24/18 183 Urine Squamous Epithelial Cells None /LPF 01/24/181829 Urine Leukocyte Esterase Negative 01/24/181829 Serum Alcohol 111 mg/dl 01/24/18 1659 EKG / Imaging Imaging Cervical Spine CT - No acute fracture or acute abnormality. Chest/Abd/Pelvis CT - 1. Acute nondisplaced right lateral ninth and 10th rib fractures. 2. Trace right new pleural fluid. 3. No additional acute abnormality in the chest, abdomen or pelvis. 4. Large unchanged gastric paraesophageal hernia. 5. Enlarged prostate gland measures 6.[address] - No acute intracranial abnormality. Moderate unchanged chronic small vessel ischemic change. Unchanged chronic right lamina papyracea fracture deformity. Assessment and Plan Problems: (1) Right rib fracture Status: Acute Assessment & Plan: He presented with 2-3 days of right rib pain secondary to a fall while intoxicated. CT confirms right lateral 9/10 non-displaced fractures. He is hypoxic. No infiltrate on CT. Will use Lidoderm/APAP/ Naprosyn/Oxycodone for pain control. Will ask OT/PT to evaluate because he is falling at home, and now is more unstable because of the rib pain. Will use IS for pneumonia prevention. (2) Alcohol abuse Status: Chronic Assessment & Plan: He reports 1-2 bottles of vodka consumption per week. He reports his last drink was 2 days ago. However, his BAL is 111mg/dl. He denies tremors or seizures with stopping drinking. Will implement seizure precautions and check CIWA's with Valium to cover. He will get Folate and Thiamine. (3) Frequent falls Status: Acute Assessment & Plan: He was admitted for problems with balance in April of 2017 and had a thorough work up. Certainly, his excessive alcohol consumption is contributing. Will recheck B12/Folate. OT/PT to see. (4) DVT (deep venous thrombosis) Status: Chronic Assessment & Plan: He did have a chronic thrombus in the RLE, that was documented resolved in April of 2017. He reports noting that his right ankle is more swollen over the last week. Will get a venogram. (5) Hypothyroid Status: Chronic Assessment & Plan: He has had an elevated TSH in the past. He is not taking any supplementation. Will check a TSH. (6) Essential hypertension Status: Chronic Assessment & Plan: He was on clonidine after hospitalization in April, but never refilled further medication. His pressure is elevated, so will start amlodipine tonight. Copies to: EDITH LOPEZ MD Venous Thromboembolism Antithrombotics Is Pt On Any Antithrombotics?: No Exam Sepsis Risk: No Definite Risk Problem Qualifiers (1) Right rib fracture: Encounter type: initial encounter Rib fracture type: multiple ribs Fracture type: closed Qualified Codes: S22.41XA - Multiple fractures of ribs, right side, initial encounter for closed fracture ELSI HILLMAN MD Jan 24, 2018 21:55
[2018-01-24 21:59] VITALS: BP 179/93
[2018-01-24 22:15] VITALS: BP 196/108
[2018-01-24 22:30] VITALS: BP 172/91
[2018-01-24] MEDS: ACETAMINOPHEN 500 MG TAB PO PRN (22:43)
[2018-01-24 23:49] VITALS: BP 159/80
[2018-01-25] VITALS (8 sets, daily range): BP systolic 134–205; BP diastolic 80–108; Ht 177.8 cm; Wt 71.4 kg
[2018-01-25] MEDS: DIAZEPAM 10 MG TAB PO PRN ×2 (01:00→01:34)
[2018-01-25 07:03] LABS: PLATELET COUNT, AUTOMATED 180 K/uL (150-450)
[2018-01-25 07:23] LABS: INR 1.15
[2018-01-25] MEDS: THIAMINE HCL 100 MG TAB PO SCH (08:35)
[2018-01-25] MEDS ORDERED: amLODIPine BESYL(*) 5 MG TAB PO ONE (08:35)
[2018-01-25] MEDS: ENOXAPARIN 40 MG/0.4ML SYR SC SCH (08:36)
[2018-01-25] MEDS: FOLIC ACID 1 MG TAB PO SCH (08:36)
[2018-01-25] MEDS: LIDOCAINE 5% PATCH TP SCH (08:37)
--- NOTE | 2018-01-25 08:41 | RADIOLOGY IMAGING REPORT ---
FACILITY: [facility] - [place] PATIENT NAME: Kenny Billings : 1940 MR: [id number] V: [id number] EXAM DATE: ORDERING PHYSICIAN: ELSI HILLMAN TECHNOLOGIST: Location: [facility] - [place] Patient: Kenny Billings : 1940 Visit/Account:[id number] Date of Sevice: 01/24/2018 VENOUS DOPP LOW RIGHT EXTREMITY HISTORY: RLE edema ADDITIONAL HISTORY: None. COMPARISON: Comparison study dated 05/22/2017 which was negative for DVT and 01/01/2014 which demonstr ated nonocclusive thrombus in the right popliteal vein FINDINGS: Grayscale, duplex and color Doppler interrogation of the right lower extremity deep veins from common femoral vein to proximal calf was completed. Common femoral vein - Negative. Femoral vein - Negative. Deep femoral vein - Negative. Popliteal vein - the popliteal vein is only partially compressible and nonocclusive thrombus is seen along the wall of the vein which is developed since the previous exam. Visualized deep calf veins - Negative. Popliteal fossa: Negative. Greater saphenous vein in the proximal thigh: Negative. There is edema seen in the soft tissues of the calf which was also present on the previous study. IMPRESSION: Nonocclusive deep vein thrombosis seen in the right popliteal vein. Acuity is uncertain but it has de veloped since April 2017. Report Dictated By: Oleksandr Garcia MD at 01/25/2018 8:04 AM Report E-Signed By: Oleksandr Garcia MD at 01/25/2018 8:38 AM WSN:[id number]
[2018-01-25] MEDS: ACETAMINOPHEN 500 MG TAB PO PRN (09:23)
--- NOTE | 2018-01-25 10:17 | Hospitalist Progress Note ---
Subjective Progress Notes Subjective He reports some improvement in pain this morning. He had no acute events overnight. Patient Complains of: Cardiovascular: No: Chest Pain Respiratory: No: Shortness of Breath Physical Exam Vital Signs Date Time Temp Pulse Resp B/P (MAP) Pulse Ox O2 Delivery O2 Flow Rate FiO2 01/25/18 07:20 92 Nasal Cannula 3.0 01/25/18 07:20 97.7 55 16 180/99 (126) Intake and Output 01/26/18 01:00 Intake Total 240 ml Balance 240 ml Intake Oral 240 ml # Voids 1 General Appearance: Alert, Awake, No Acute Distress, Afebrile Neuro: No Gross deficits Cardiovascular: Regular Rate and Rhythm Respiratory: No Respiratory Distress, Clear to Auscultation Extremities: Edema (right lower extremity non pitting edema) Psych: Alert & Oriented X3, Appropriate Mood & Affect Result Diagram: 01/25/1864701/25/18647 Assessment and Plan Problems: (1) Right rib fracture Status: Acute Assessment & Plan: He presented with 2-3 days of right rib pain secondary to a fall while intoxicated. CT confirms right lateral 9/10 non-displaced fractures. He is hypoxic. No infiltrate on CT. Will use Lidoderm/APAP/ Naprosyn/Oxycodone for pain control. Will ask OT/PT to evaluate because he is falling at home, and now is more unstable because of the rib pain. Will use IS for pneumonia prevention. (2) Alcohol abuse Status: Chronic Assessment & Plan: He reports 1-2 bottles of vodka consumption per week. He reports his last drink was 2 days ago. However, his BAL is 111mg/dl. He denies tremors or seizures with stopping drinking. Will implement seizure precautions and check CIWA's with Valium to cover. He will get Folate and Thiamine. We will consult S, per family request for alcohol resources. (3) Frequent falls Status: Acute Assessment & Plan: He was admitted for problems with balance in April of 2017 and had a thorough work up. Certainly, his excessive alcohol consumption is contributing. Will recheck B12/Folate. OT/PT to see. (4) DVT (deep venous thrombosis) Status: Chronic Assessment & Plan: He did have a chronic thrombus in the RLE, that was documented resolved in April of 2017. He reports noting that his right ankle is more swollen over the last week. Venogram shows nonocclusive clot to the right popliteal, which was noted since 2013 and 2014 ultrasounds. He has been placed on standard precaution Lovenox, but don't feel ferry terminal agent anticoagulation is required secondary to the clot, which is chronic in nature. (5) Hypothyroid Status: Chronic Assessment & Plan: He has had an elevated TSH in the past. He is not taking any supplementation. TSH pending. (6) Essential hypertension Status: Chronic Assessment & Plan: He was on clonidine after hospitalization in April, but never refilled further medication. His pressure is elevated, so will start amlodipine tonight. Exam Sepsis Risk: No Definite Risk Problem Qualifiers (1) Right rib fracture: Encounter type: initial encounter Rib fracture type: multiple ribs Fracture type: closed Qualified Codes: S22.41XA - Multiple fractures of ribs, right side, initial encounter for closed fracture JOHN IBARRA [employer] ADMINISTRATOR Jan 25, 2018 10:17
[2018-01-25] MEDS ORDERED: amLODIPine BESYL(*) 5 MG TAB PO SCH (21:00)
[2018-01-25] MEDS ORDERED: PATCH REMOVAL 1 EA TP SCH (21:00)
[2018-01-25] MEDS ORDERED: amLODIPine BESYL(*) 5 MG TAB ONE (21:34)
[2018-01-26 02:32] VITALS: BP 174/92
[2018-01-26 04:51] VITALS: BP 190/99
[2018-01-26 07:05] VITALS: BP 171/96
[2018-01-26] MEDS ORDERED: AMLO-99 PO (08:36)
[2018-01-26] MEDS ORDERED: OXYC5TAB38 PO (08:36)
[2018-01-26] MEDS ORDERED: LIDO700A19 TP (08:36)
[2018-01-26] MEDS ORDERED: VITA-175 PO (08:36)
--- NOTE | 2018-01-26 08:54 | Hospitalist Depart ---
Discharge Summary Reason for Hosp/Final Diag: (1) Right rib fracture Status: Acute Hospital Course & Plan: He presented with 2-3 days of right rib pain secondary to a fall while intoxicated. CT confirms right lateral 9th and 10th non- displaced fractures. He has had mild hypoxia. No infiltrate on CT. We placed him on Lidoderm/APAP/Naprosyn/Oxycodone for pain control and IS for pneumonia prevention. He will require at least temporary oxygen while his rib fractures heal. He will also need to address his alcohol use/abuse as it is the underlying cause of his falls. (2) Alcohol abuse Status: Chronic Hospital Course & Plan: He reports 1-2 bottles of vodka consumption per week. He reports his last drink was 2 days prior to admission. However, his BAL was 111mg/dl. He has not had seizures with stopping drinking. He was monitored with CIWA protocol and given benzodiazepines as necessary. He was also given Folate and Thiamine. He was seen by the substance abuse counselor during his stay. He has decided to use Alcoholics Anonymous as his resource to maintain abstinence. He may also begin counselling through [facility]. He understands that virtually all of his current problems have their source in his alcohol use/abuse. (3) Frequent falls Status: Acute Hospital Course & Plan: He was admitted for problems with balance in April of 2017 and had a thorough work up. Certainly, his excessive alcohol consumption is contributing. OT/PT did see him during his stay. He will have Home Health and help of family at home. (4) DVT (deep venous thrombosis) Status: Chronic Hospital Course & Plan: He did have a chronic thrombus in the RLE, that was documented apparently resolved in April of 2017. Ultrasound venogram showed nonocclusive clot to the right popliteal, which was noted on 2012 and 2013 ultrasounds. He was placed on standard precaution Lovenox, but not shelter anticoagulation as the clot is most likely chronic in nature. (5) Hypothyroid Status: Chronic Hospital Course & Plan: He has had an elevated TSH in the past. He is not taking any supplementation. TSH is 5.78 at this time. He may need replacement therapy, but we will leave this up to his primary care provider (Taylor PIERCE ). (6) Essential hypertension Status: Chronic Hospital Course & Plan: He was on clonidine after hospitalization in April, but never refilled further medication. His pressure has been elevated, so we did start amlodipine 10mg daily. He will need follow up with his primary care provider. Departure Weight (Pounds): 157 Weight (Ounces): 8.0 Result Diagram: 01/25/18 0648 01/25/18 0648 Item Value Date Time Sodium Level 137 mmol/L 01/24/18 1659 Potassium Level 4.4 mmol/L 01/24/18 1659 Chloride Level 98 mmol/L 01/24/18 1659 Carbon Dioxide Level 25 mmol/L 01/24/18 1659 Blood Urea Nitrogen 15 mg/dl 01/24/18 1659 Creatinine 1.00 mg/dl 01/24/18 1659 Glomerular Filtration Rate Calc > 60.0 01/24/18 1659 Random Glucose 96 mg/dl 01/24/18 1659 Calcium Level 8.2 mg/dl L 01/24/18 1659 Total Bilirubin 0.7 mg/dl 01/24/18 1659 Aspartate Amino Transf (AST/SGOT) 38 U/L H 01/24/18 1659 Alanine Aminotransferase (ALT/SGPT) 31 U/L 01/24/18 1659 Alkaline Phosphatase 119 U/L 01/24/18 1659 Total Protein 6.4 g/dl 01/24/18 1659 Thyroid Stimulating Hormone (TSH) 5.78 uIU/ml H 01/25/18 0648 Prothrombin Time 14.8 seconds H 01/25/1848 Prothromb Time International Ratio 1.15 01/25/18 0648 White Blood Count 6.6 k/uL 01/24/18 1659 Hemoglobin 15.8 g/dL 01/24/18 1659 Hematocrit 43.8 % 01/24/18 1659 Mean Corpuscular Volume 105.9 fL H 01/24/18 1659 Platelet Count 191 K/uL 01/24/18 1659 Urine Color Yellow 01/24/18 1830 Urine Clarity Clear 01/24/18 1830 Urine pH 6.0 pH 01/24/18 1830 Urine Specific [place] 1.023 01/24/18 1830 Urine Protein Negative mg/dL 01/24/18 1830 Urine Glucose (UA) Negative mg/dL 01/24/18 183 Urine Ketones Negative mg/dL 01/24/18 183 Urine Blood Negative 01/24/18 1830 Urine Nitrite Negative 01/24/18 1830 Urine Bilirubin Negative 01/24/18 1830 Urine Urobilinogen Negative mg/dL 01/24/18 1830 Urine Leukocyte Esterase Negative 01/24/18 1830 Urine RBC <1 /HPF 01/24/18 1830 Urine WBC <1 /HPF 01/24/18 1830 Urine Squamous Epithelial Cells None /LPF 01/24/18 1830 Urine Bacteria Negative /HPF 01/24/18 1830 Urine Mucus None /HPF 01/24/18 1830 Serum Alcohol 111 mg/dl 01/24/18 1659 Imaging PATIENT NAME: Kenny Billings : 1940 MR: [id number] V: [id number] EXAM DATE: ORDERING PHYSICIAN: MAEVE CALDERON TECHNOLOGIST: [place] [facility] [place]: Kenny Billings : 1940 Visit/Account:[id number] Date of Sevice: 01/24/[address] scan without contrast HISTORY: Fall 3 days ago COMPARISONS: December 01, 2017 TECHNIQUE: Non-contrast head CT was performed with sagittal and coronal reformations. One of the following dose optimization techniques was utilized in the performance of this exam: automated exposure control; adjustment of the mA and/ or kV according to patient size; or use of iterative reconstruction technique. Specific details can be referenced in the facility's radiology CT exam operational policy. FINDINGS: There is no intracranial hemorrhage, hydrocephalus or midline shift. The basal cisterns, kearney-white differentiation, and convexity sulci are maintained. Normal orbital soft tissues. Unchanged moderate patchy white matter hypoattenuation. Clear mastoid air cells. Moderate left maxillary sinus mucosal thickening. Chronic right lamina papyracea fracture deformity as before. No acute fracture. IMPRESSION: No acute intracranial abnormality. Moderate unchanged chronic small vessel ischemic change. Unchanged chronic right lamina papyracea fracture deformity. Report Dictated By: Andrae Lynn MD at 01/24/2018 6:29 PM Report E-Signed By: Andrae Lynn MD at 01/24/2018 6:34 PM WSN:[id number] PATIENT NAME: Kenny Billings : 1940 MR: [id number] V: [id number] EXAM DATE: [id number] ORDERING PHYSICIAN: MAEVE CALDERON TECHNOLOGIST: [place] [facility] [place] Patient: Kenny Billings : 1940 Visit/Account:[id number] Date of Sevice: 01/24/2018 EXAMINATION: CT chest, abdomen and pelvis with IV contrast HISTORY: Fall, right chest pain, abdomen pain TECHNIQUE: CT was obtained through the chest, abdomen and pelvis with intravenous contrast. Sagittal and coronal MPR reformatted images generated. 75 mL isovue 370 was injected. One of the following dose optimization techniques was utilized in the performance of this exam: automated exposure control; adjustment of the mA and/ or kV according to patient size; or use of iterative reconstruction technique. Specific details can be referenced in the facility's radiology CT exam operational policy. COMPARISON: Chest CT May 22, 2017 FINDINGS: Chest: Lower neck: Normal. Heart /pericardium/aorta/great vessels: Mildly enlarged heart, mild coronary artery calcification. Mediastinum: Large unchanged gastric paraesophageal hernia. Unchanged mild diffuse esophageal wall thickening. Lymph node assessment: Normal. Pleura: Trace new right pleural fluid. Lungs: Unchanged medial right upper lobe scarring. New right middle lobe subsegmental atelectasis. Medial right middle lobe scarring similar to prior. New subsegmental atelectasis in the right lower lobe. Mild new right lower lobe probable atelectasis, image 78. . Chest wall: Normal. Musculoskeletal: Left posterior 11th chronic rib fracture deformity. Multiple chronic right rib fracture deformities as before. Acute nondisplaced right lateral ninth and 10th rib fractures. Abdomen/pelvis: Spleen: Normal. Adrenal glands: Normal. Pancreas: Normal. Kidneys: Bilateral cysts. Mild left renal pelvis and left intrarenal collecting system dilatation. Gallbladder: Normal. Liver: Left hepatic lobe cyst. Vessels: Normal for age. Lymph node assessment: Normal. Bowel including small bowel, colon and appendix: Gastric hernia as described above. Normal small bowel. Appendix not visualized. Normal colon. Peritoneum / retroperitoneum / mesentery: Normal. Pelvic structures: Normal bladder, enlarged prostate gland measures 6.2 cm transverse. Normal rectum. No pelvic fluid or adenopathy. Body wall: Normal. Musculoskeletal: No fracture or osseous destruction. Moderate L2-3 disc space degeneration and moderate to severe L4-5 and L5-S1 facet arthropathy. IMPRESSION: 1. Acute nondisplaced right lateral ninth and 10th rib fractures. 2. Trace right new pleural fluid. 3. No additional acute abnormality in the chest, abdomen or pelvis. 4. Large unchanged gastric paraesophageal hernia. 5. Enlarged prostate gland measures 6.2 cm. Report Dictated By: Andrae Lynn MD at 01/24/2018 6:39 PM Report E-Signed By: Andrae Lynn MD at 01/24/2018 6:56 PM WSN:[id number] PATIENT NAME: Kenny Billings : 1940 MR: [id number] V: [id number] EXAM DATE: ORDERING PHYSICIAN: MAEVE CALDERON TECHNOLOGIST: [place] [facility] [place] Patient: Kenny Billings : 1940 Visit/Account:[id number] Date of Sevice: 01/24/2018 EXAMINATION: CT Cervical spine without intravenous contrast HISTORY: Fall COMPARISON: None. TECHNIQUE: Axial images were obtained from the skull base through the upper thoracic spine without IV contrast administration. Coronal and sagittal reformatted images were generated from the axial source data. One of the following dose optimization techniques was utilized in the performance of this exam: automated exposure control; adjustment of the mA and/ or kV according to patient size; or use of iterative reconstruction technique. Specific details can be referenced in the facility's radiology CT exam operational policy. FINDINGS: Vertebral bodies and posterior elements: Normal vertebral body heights. No fracture or osseous destruction. Alignment: Slight retrolisthesis of C3 on C4. Slight anterolisthesis of C5 on C6 and C7 on T1. Disc Spaces: Severe C3-4, C6-7 and C7-T1 disc space degeneration. Multilevel facet arthropathy. Multilevel degenerative foraminal narrowing. Soft tissues: Normal. Visualized upper chest: Normal. IMPRESSION: No acute fracture or acute abnormality. Report Dictated By: Andrae Lynn MD at 01/24/2018 6:34 PM Report E-Signed By: Andrae Lynn MD at 01/24/2018 6:39 PM WSN:[id number] PATIENT NAME: Kenny Billings : 1940 MR: [id number] V: [id number] EXAM DATE: ORDERING PHYSICIAN: ELSI HILLMAN TECHNOLOGIST: [place] [facility] [place] Patient: Kenny Billings : 1940 Visit/Account:[id number] Date of Sevice: 01/24/2018 VENOUS DOPP LOW RIGHT EXTREMITY HISTORY: RLE edema ADDITIONAL HISTORY: None. COMPARISON: Comparison study dated 05/22/2017 which was negative for DVT and 01/01/2014 which demonstrated nonocclusive thrombus in the right popliteal vein FINDINGS: Grayscale, duplex and color Doppler interrogation of the right lower extremity deep veins from common femoral vein to proximal calf was completed. Common femoral vein - Negative. Femoral vein - Negative. Deep femoral vein - Negative. Popliteal vein - the popliteal vein is only partially compressible and nonocclusive thrombus is seen along the wall of the vein which is developed since the previous exam. Visualized deep calf veins - Negative. Popliteal fossa: Negative. Greater saphenous vein in the proximal thigh: Negative. There is edema seen in the soft tissues of the calf which was also present on the previous study. IMPRESSION: Nonocclusive deep vein thrombosis seen in the right popliteal vein. Acuity is uncertain but it has developed since April 2017. Report Dictated By: Oleksandr Garcia MD at 01/25/2018 8:04 AM Report E-Signed By: Oleksandr Garcia MD at 01/25/2018 8:38 AM WSN:[id number] Condition: Improved Discharge: Home, Home Health PT/OT Follow Up For: PT For Strengthening, OT For ADL's Home Health RN Follow Up For: Nursing Assessment Home Health RN URGENT CARE Follow Up For: ADL Assistance Time Spent: > 30 min Discharge Instructions Home Meds Active Scripts Amlodipine Besylate (AMLODIPINE BESYLATE) 10 Mg Tablet, 1 TAB PO QDAY, #30 TAB 1 Refill Prov:YOSI LARSON MD 01/26/18 Vitamin B Complex (B COMPLEX) 1 Each Tablet, 1 EACH PO DAILY, #30 TAB 6 Refills Prov:YOSI LARSON MD 01/26/18 Oxycodone Hcl (OXYCODONE HCL) 5 Mg Tablet, 5 MG PO Q6H Y for BREAKTHROUGH PAIN, #20 TAB 0 Refills Prov:YOSI LARSON MD 01/26/18 Lidocaine (Lidocaine) 5 % Adh..patch, 1 EACH TP QDAY Y for PAIN, #14 PATCH.24H 1 Refill Prov:YOSI LARSON MD 01/26/18 Discontinued Scripts Lidocaine (Lidocaine) 5 % Adh..patch, 1 PATCH TOP Q12H Y for prn, #5 PATCH One patch to the affected area, on for 12 hours off for 12 hours. Prov:MAEVE CALDERON HANDICAPPER [employer] 01/24/18 Triamcinolone Acetonide 0.1% Oint 15 Gm Tube (TRIAMCINOLONE ACETONIDE 0.1% 15 GM TUBE) 15 Gm Oint...g., 30 GM TP BID for 30 Days, #1 TUBE 2 Refills Use to legs 10-14 days twice a day then DC and use moisturizers. Do not use on face, neck, axillae, or groin. Prov:SHON MEDRANO 07/20/17 Hydroxyzine Hcl (HYDROXYZINE HCL) 25 Mg Tablet, 25 MG PO TID Y for ITCHING, #90 TAB 1 Refill Prov:EDITH LOPEZ MD 07/04/17 Sertraline Hcl (SERTRALINE HCL) 25 Mg Tablet, 1 TAB PO QDAY, #90 TAB 1 Refill Prov:EDITH LOPEZ MD 06/27/17 Multivitamin (MULTI-VITAMIN DAILY) 1 Each Tablet, 1 EACH PO QDAY, #30 TAB Prov:EDITH LOPEZ MD 05/31/17 Follow up Referrals: Family Practice Diet: Regular Activity: As Tolerated Special Instructions: Home oxygen at 3L via nasal cannula continuously. Follow up with Taylor PIERCE in next 5-10 days or sooner if any problems. NO Alcohol. Follow up with Alcoholics Anonymous Copies to: ZAHIRA LEVY Venous Thromboembolism Antithrombotics Is Pt On Any Antithrombotics?: No [id number]-[id number] Certification Face to Face Home Health Certification Institutional Provider conducted the vitl-go-hylg encounter. Electronic Undersigning Physician Certifies Home Health. I certify that the patient has been under my care and that I had a [id number] encounter that meets the physician [id number] encounter requirements with this patient. This patient is home-bound due to safety issues and continues to require assistance with ADL's. I certify that based on my findings, that Nursing, Aides and the following Home Health services are medically necessary: nursing and rehabilitative therapy. Medical Necessity: Nursing, Rehab Date Face to Face Conducted: Jan 26, 2018 Problem Qualifiers (1) Right rib fracture: Encounter type: initial encounter Rib fracture type: multiple ribs Fracture type: closed Qualified Codes: S22.41XA - Multiple fractures of ribs, right side, initial encounter for closed fracture YOSI LARSON MD Jan 26, 2018 08:54
[2018-01-26] MEDS: THIAMINE HCL 100 MG TAB PO SCH (09:49)
[2018-01-26] MEDS: FOLIC ACID 1 MG TAB PO SCH (09:49)
[2018-01-26] MEDS: ENOXAPARIN 40 MG/0.4ML SYR SC SCH (09:50)
[2018-01-26] MEDS: LIDOCAINE 5% PATCH TP SCH (10:27)
[2018-01-26 11:04] VITALS: BP 122/74
== END 2018-01-26 14:25 | disposition home health service (06) | DRG 185 ==
LOC: ER 16:35 → MED 21:27 → OBSVTOIN 21:27
PROVIDERS: ADMIT Internal Medicine; ATTEND Internal Medicine
DX: S22.41XA Multiple fractures of ribs, right side, initial encounter for closed fracture (principal); F10.10 Alcohol abuse, uncomplicated; R09.02 Hypoxemia; I10 Essential (primary) hypertension; K22.70 Barrett's esophagus without dysplasia; E03.9 Hypothyroidism, unspecified; M25.471 Effusion, right ankle; K21.9 Gastro-esophageal reflux disease without esophagitis; F32.9 Major depressive disorder, single episode, unspecified; F17.210 Nicotine dependence, cigarettes, uncomplicated; Y90.5 Blood alcohol level of 100-119 mg/100 ml; W19.XXXA Unspecified fall, initial encounter; Z96.652 Presence of left artificial knee joint; Z91.81 History of falling; Z86.73 Personal history of transient ischemic attack (TIA), and cerebral infarction without residual deficits; Z86.718 Personal history of other venous thrombosis and embolism
CPT/HCPCS: 36415; 70450; 71260; 72125; 74177; 80320; 81001; 82040; 82247; 82310; 82374; 82435; 82565; 82607; 82746; 82947; 83735; 84075; 84132; 84155; 84295; 84443; 84450; 84460; 84520; 85025; 85610; 97162; 97165; 99284; J1650; Q9967

== ENCOUNTER 2018-03-08 14:10 | Emergency (ER) | payer MEDICARE, OTHER ==
[2018-01-25 08:48] VITALS: Wt 71.4 kg
[~2018-03-08 14:10] MED LIST changes: +AMLO-99 PO; +LIDO700A19 TOP; +LIDO700A19 TP; +OXYC5TAB38 PO; +VITA-175 PO
[2018-03-08] MEDS ORDERED: THIAMINE HCL(*) 200 MG/2 ML IN 100 MG, FOLIC ACID(*) 50 MG/10 ML INJ 1 MG, MULTIVITAMIN... IV ONE (14:46)
[2018-03-08] MEDS ORDERED: LORazepam 2 MG/ML VIAL IVP ONE (14:50)
[2018-03-08 15:14] LABS: PLATELET COUNT, AUTOMATED 174 K/uL (150-450)
--- NOTE | 2018-03-08 15:23 | ER Report ---
History and Physical Time Seen By MD: 14:45 Hx. of Stated Complaint: THINKS HES WITHDRAWING FROM ALCOHOL, UNKNOWN LAST DRINK, SHAKY HPI/ROS CHIEF COMPLAINT: Alcohol withdrawal HISTORY OF PRESENT ILLNESS: Patient is a 77-year-old male who is brought to the emergency department with his older sister for evaluation of acute alcohol withdrawal. Patient states he drinks a various amount of alcohol per day and cannot quantify exactly amount but states he does drink daily. He is apparently been admitted here for alcohol detox in the past. He is feeling tremulous and also somewhat nauseous. He denies any headache. Sister notes that he seems somewhat more confused than usual. There are no history of recent falls. Patient denies any suicidal or homicidal ideation. Patient is unsure of his last drink which may have been yesterday. REVIEW OF SYSTEMS: Constitutional: No fever, no chills. Eyes: No discharge. ENT: No sore throat. Cardiovascular: No chest pain, no palpitations. Respiratory: No cough, no shortness of breath. Gastrointestinal: No abdominal pain, no vomiting. Positive for nausea Genitourinary: No hematuria. Musculoskeletal: No back pain. Skin: No rashes. Neurological: No headache. Feeling shaky Allergies: Coded Allergies: No Known Allergies (Verified Allergy, Mild, 12/01/17) Uncoded Allergies: SILK (Allergy, Mild, RASH, 03/29/10) Home Meds Discontinued Scripts Amlodipine Besylate (AMLODIPINE BESYLATE) 10 Mg Tablet, 1 TAB PO QDAY, #30 TAB 1 Refill Prov:YOSI LARSON MD 01/26/18 Vitamin B Complex (B COMPLEX) 1 Each Tablet, 1 EACH PO DAILY, #30 TAB 6 Refills Prov:YOSI LARSON MD 01/26/18 Past Medical/Surgical History Past medical history for hypertension, gastroesophageal reflux disease, history of hyperthyroidism, history of appendectomy. Hx Smoking: No Smoking Status: Light Tobacco Smoker Exposure to Second Hand Smoke?: No Hx Substance Use Disorder: No Hx Alcohol Use: Yes (ALCOHOLIC) Constitutional Vital Sign - Last 24 Hours 03/08/18 03/08/18 03/08/18 03/08/18 14:25 14:29 14:30 14:31 Temp 98.9 Pulse ??? 81 Resp 16 B/P (MAP) 191/114 (139) 197/110 (139) 191/114 Pulse Ox 91 O2 Delivery Room Air 03/08/18 03/08/18 03/08/18 03/08/18 14:40 14:55 15:00 15:10 Pulse 74 70 61 Resp 13 B/P (MAP) 153/97 (115) Pulse Ox 93 03/08/18 03/08/18 03/08/18 15:20 15:25 15:40 Pulse 65 59 Resp 20 14 B/P (MAP) 165/90 (115) 167/88 (114) Pulse Ox 92 93 Physical Exam General Appearance: The patient is alert, has no immediate need for airway protection and no signs of toxicity. Eyes: Pupils equal and round no pallor or injection. ENT, Mouth: Mucous membranes are moist. Respiratory: There are no retractions, lungs are clear to auscultation. Cardiovascular: Regular rate and rhythm. Gastrointestinal: Abdomen is soft and non tender, no masses, bowel sounds normal. Neurological: Awake alert, increased psychomotor agitation. Skin: Warm and dry, no rashes. Musculoskeletal: Neck is supple non tender. Extremities are nontender, nonswollen and have full range of motion. Psychiatric: No suicidal or homicidal ideation. Patient somewhat confused but thought process seems logical. Medical Decision Making Data Points Result Diagram: 03/08/18 1450 03/08/18 1450 Laboratory Hematology Test 03/08/18 14:50 Red Blood Count 4.31 M/uL (4.00-5.60) Mean Corpuscular Volume 106.7 fL (80.0-96.0) Mean Corpuscular Hemoglobin 37.1 pg (26.0-33.0) Mean Corpuscular Hemoglobin Concent 34.8 g/dL (32.0-36.0) Red Cell Distribution Width 14.5 % (11.5-14.5) Mean Platelet Volume 7.3 fL (7.2-11.1) Neutrophils (%) (Auto) 81.8 % (39.4-72.5) Lymphocytes (%) (Auto) 8.4 % (17.6-49.6) Monocytes (%) (Auto) 8.4 % (4.1-12.4) Eosinophils (%) (Auto) 0.4 % (0.4-6.7) Basophils (%) (Auto) 1.0 % (0.3-1.4) Nucleated RBC Relative Count (auto) 0.0 /100WBC Neutrophils # (Auto) 4.3 K/uL (2.0-7.4) Lymphocytes # (Auto) 0.4 K/uL (1.3-3.6) Monocytes # (Auto) 0.4 K/uL (0.3-1.0) Eosinophils # (Auto) 0.0 K/uL (0.0-0.5) Basophils # (Auto) 0.1 K/uL (0.0-0.1) Nucleated RBC Absolute Count (auto) 0.00 K/uL Sodium Level 138 mmol/L (137-145) Potassium Level 4.0 mmol/L (3.5-5.0) Chloride Level 99 mmol/L (98-107) Carbon Dioxide Level 25 mmol/L (22-30) Blood Urea Nitrogen 16 mg/dl (9-21) Creatinine 0.90 mg/dl (0.66-1.25) Glomerular Filtration Rate Calc > 60.0 Random Glucose 112 mg/dl (75-110) Calcium Level 9.1 mg/dl (8.4-10.2) Magnesium Level 1.6 mg/dl (1.7-2.2) Total Bilirubin 1.6 mg/dl (0.2-1.3) Aspartate Amino Transf (AST/SGOT) 59 U/L (0-35) Alanine Aminotransferase (ALT/SGPT) 40 U/L (0-56) Alkaline Phosphatase 123 U/L (0-126) Total Protein 6.9 g/dl (6.3-8.2) Albumin 4.0 g/dl (3.5-5.0) Salicylates Level < 10 mg/L Salicylate Last Dose Date unk Acetaminophen Level < 10 ug/ml Serum Alcohol < 10 mg/dl Chemistry Test 03/08/18 14:50 White Blood Count 5.3 k/uL (4.5-11.0) Red Blood Count 4.31 M/uL (4.00-5.60) Hemoglobin 16.0 g/dL (14.0-18.0) Hematocrit 45.9 % (42.0-52.0) Mean Corpuscular Volume 106.7 fL (80.0-96.0) Mean Corpuscular Hemoglobin 37.1 pg (26.0-33.0) Mean Corpuscular Hemoglobin Concent 34.8 g/dL (32.0-36.0) Red Cell Distribution Width 14.5 % (11.5-14.5) Platelet Count 174 K/uL (150-450) Mean Platelet Volume 7.3 fL (7.2-11.1) Neutrophils (%) (Auto) 81.8 % (39.4-72.5) Lymphocytes (%) (Auto) 8.4 % (17.6-49.6) Monocytes (%) (Auto) 8.4 % (4.1-12.4) Eosinophils (%) (Auto) 0.4 % (0.4-6.7) Basophils (%) (Auto) 1.0 % (0.3-1.4) Nucleated RBC Relative Count (auto) 0.0 /100WBC Neutrophils # (Auto) 4.3 K/uL (2.0-7.4) Lymphocytes # (Auto) 0.4 K/uL (1.3-3.6) Monocytes # (Auto) 0.4 K/uL (0.3-1.0) Eosinophils # (Auto) 0.0 K/uL (0.0-0.5) Basophils # (Auto) 0.1 K/uL (0.0-0.1) Nucleated RBC Absolute Count (auto) 0.00 K/uL Glomerular Filtration Rate Calc > 60.0 Calcium Level 9.1 mg/dl (8.4-10.2) Magnesium Level 1.6 mg/dl (1.7-2.2) Total Bilirubin 1.6 mg/dl (0.2-1.3) Aspartate Amino Transf (AST/SGOT) 59 U/L (0-35) Alanine Aminotransferase (ALT/SGPT) 40 U/L (0-56) Alkaline Phosphatase 123 U/L (0-126) Total Protein 6.9 g/dl (6.3-8.2) Albumin 4.0 g/dl (3.5-5.0) Salicylates Level < 10 mg/L Salicylate Last Dose Date unk Acetaminophen Level < 10 ug/ml Serum Alcohol < 10 mg/dl Toxicology Test 03/08/18 14:50 Salicylates Level < 10 mg/L Salicylate Last Dose Date unk Acetaminophen Level < 10 ug/ml Serum Alcohol < 10 mg/dl EKG/Imaging EKG Interpretation EKG shows normal sinus rhythm with first-degree AV block left axis deviation but is otherwise normal. Monitor Interpretation: Normal Sinus Rhythm ED Course/Re-evaluation Clinical Indication for ER IV: IV Access ED Course 03/08/2018 3:22:24 pm plan at this time will be to perform medical screening exam C was course 21 will appropriately medicated with benzodiazepines. Medical screening evaluation is clear will call for admission to behavioral medicine. Decision to Disposition Date: Mar 08, 2018 Decision to Disposition Time: 15:52 Depart Departure Latest Vital Signs Vital Signs Date Time Temp Pulse Resp B/P (MAP) Pulse Ox O2 Delivery O2 Flow Rate FiO2 03/08/18 15:40 59 14 167/88 (114) 93 03/08/18 14:31 98.9 Room Air Impression: Primary Impression: Alcohol withdrawal Condition: Improved Disposition: [facility] TO [facility] (to dr nichole) Referrals: EDITH LOPEZ MD (PCP) Problem Qualifiers Primary Impression: Alcohol withdrawal Complication of substance-induced condition: uncomplicated Qualified Codes: F10.230 - Alcohol dependence with withdrawal, uncomplicated ALBAN SEN MD Mar 08, 2018 15:23
[2018-03-08] MEDS ORDERED: DIAZEPAM 5 MG TAB PO ONE (15:35)
--- NOTE | 2018-03-08 15:43 | EKG ---
FACILITY: [facility] PATIENT NAME: JEROMY COX : [id number] MR: [id number] V: [id number] EXAM DATE: ORDERING PHYSICIAN: ALBAN SEN TECHNOLOGIST: Test Reason : Blood Pressure : / mmHG Vent. Rate : 058 BPM Atrial Rate : 058 BPM P-R Int : 264 ms QRS Dur : 084 ms QT Int : 442 ms P-R-T Axes : 051 -52 020 degrees QTc Int : 433 ms Sinus bradycardia with 1st degree AV block Left axis deviation Septal infarct , age undetermined Abnormal ECG When compared with ECG of 01-DEC-2017 01:27, QRS axis shifted left Septal infarct is now present Referred By: Confirmed By:
[2018-03-08 17:20] VITALS: BP 169/94
== END 2018-03-08 17:10 ==
LOC: ER 14:29
DX: F10.230 Alcohol dependence with withdrawal, uncomplicated (principal); R00.1 Bradycardia, unspecified; I44.0 Atrioventricular block, first degree
CPT/HCPCS: 83735; 84443; 85025; 93005; 96361; 96374; 99284; A9270; G0480; J2060; J3411; J3475; J7030; 80320; 80329; 82040; 82247; 82310; 82374; 82435; 82565; 82947; 84075; 84132; 84155; 84295; 84450; 84460; 84520

== ENCOUNTER 2018-03-08 16:43 | Inpatient (IN) | payer MEDICARE, OTHER ==
[2018-01-25 08:48] VITALS: BMI 22.5
[2018-03-08] MEDS ORDERED: MAG HYD/AL HYD/SIMETH 30ML UDC PO PRN (18:15)
[2018-03-08] MEDS ORDERED: DIAZEPAM 10 MG TAB PO PRN (18:15)
[2018-03-08 22:54] VITALS: BP 172/102
[2018-03-08 23:30] VITALS: BP 160/88
[2018-03-09 03:20] VITALS: BP 160/98
[2018-03-09 06:00] VITALS: BP 172/100
[2018-03-09 08:36] VITALS: BP 149/88
[2018-03-09] MEDS: FOLIC ACID 1 MG TAB PO SCH (08:40)
[2018-03-09] MEDS: THIAMINE HCL 100 MG TAB PO SCH (08:40)
[2018-03-09] MEDS: MULTIVITAMINS PO SCH (08:40)
[2018-03-09] MEDS ORDERED: DIAZEPAM 5 MG TAB PO ONE ×2 (12:20→22:25)
[2018-03-09] MEDS ORDERED: amLODIPine BESYL(*) 2.5 MG TAB PO ONE (13:00)
[2018-03-09 16:00] VITALS: BP 142/74
--- NOTE | 2018-03-09 16:39 | HISTORY AND PHYSICAL ---
DATE OF ADMISSION: March 08, 2018 Patient was seen approximately 10:00 a.m. on the morning of March 09, 2018, for note concerning this dictation. PRESENTING PROBLEM/CHIEF COMPLAINT Patient presenting voluntarily to the Emergency Room for alcohol withdrawal. HISTORY OF PRESENT ILLNESS This is a 77-year-old male who reports a very long history of alcohol consumption. Patient reports trying to control it at times, and patient proud of the fact that he went four months a long time ago without drinking any alcohol at all. Patient asking this provider on the unit if it is necessary to quit completely as patient reports, "I don't really want to quit drinking." Patient reports it has its benefits as it is a "stress reliever." Patient admits to specific stressors including trouble sleeping, and patient was seemingly unaware that alcohol use disorder interfered with restorative sleep architecture. Patient reports his sister, whom he gets along well, would be happy that he came to the hospital to quit drinking and that she will be "surprised." Patient denying any other symptoms of concern. Patient admitted to the Behavioral Health Unit without incident and being treated for alcohol withdrawal. We will also draw labs to check areas of malnutrition which could promote a pseudodementia appearance. MENTAL HEALTH HISTORY Patient has never been an inpatient on a psychiatric mancini. Patient has briefly attended AA in the remote past. Patient had remote counseling in his early 20s in college. It is unknown what for at this point. Patient has never been on any psychiatric meds. Patient denies any history of suicide attempt or thought. FAMILY PSYCHIATRIC HISTORY Patient reports an uncle on his mother's side suffered from alcoholism. There may be other members in the extended family. Patient denies any known history of psychiatric illness in the family, and there are no suicides in the family. ALLERGIES The patient has no known medication allergies, but has a contact allergen of SILK. PAST MEDICAL HISTORY 1. Patient has suffered from GERD and hypertension, both likely related to some degree to alcohol use. 2. Patient also in written record has a history of hyperthyroidism. It is unknown at this time if that is the case. PAST SURGICAL HISTORY The patient has had a knee replacement. CURRENT MEDICATIONS Patient not currently taking any medications. He was notably last prescribed Norvasc.. SOCIAL HISTORY Patient was born in [place], raised in [place]. Parents were at the time of his . He had one younger sister and a brother as well. Patient graduated high school, obtained his college degree in history. Patient never joined the . Never , has no children, not believed to have a significant other right now. He lives alone here in the [place] area. 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 LEGAL HISTORY Patient has no significant legal history, what appears to be minimal past alcohol related offenses. SUBSTANCE ABUSE HISTORY Remains alcohol, and patient denies the use of other substances. Patient admits to consuming vodka and whiskey. Unsure of how much he drinks in total. PHYSICAL EXAMINATION Please see emergency room note. Notable for: GENERAL: A 77-year-old male in active alcohol withdrawal at time of admission. VITAL SIGNS: Blood pressure 191/114 with a temperature of 98.4, pulse 81, respiratory rate of 16. LABORATORY DATA CBC notable for MCV elevated at 106.7, MCH 37.1, platelet count 174,000. Chemistry panel notable for a total bilirubin elevated at 1.6, magnesium slightly low at 1.6, AST elevated at 59. TSH 2.53. Serum alcohol undetectable. UA is pending at this time. MENTAL STATUS EXAMINATION GENERAL APPEARANCE, BEHAVIOR, AND ATTITUDE: This is a 77-year-old male, appears stated age overall. Patient having some psychomotor agitation, but being currently treated for alcohol withdrawal, and this is resolving. Patient having some slow gait and slow ambulation, aided by walker. No periods of tearfulness. No bizarre mannerisms or tics. SPEECH: Within normal limits. Regular rate, rhythm, volume, and tone. MOOD: Described as okay. AFFECT: Full and bright at times. THOUGHT PROCESSES: Appear goal directed, logical, patient reporting he wants help for alcohol use. No loose associations or flight of ideas. THOUGHT CONTENT: Patient have some mild hallucinations upon arrival. These seem to be resolving with the treatment with benzodiazepines for alcohol withdrawal. No ideas of reference, thought broadcasting, delusions, obsessions , compulsions. Patient adamantly denying suicidal or homicidal ideations. SENSORIUM: Clear. COGNITION: Alert and oriented to person, place, partially to time, but when instructed of what time was, patient then remembered it quickly. Partially to situation. MEMORY: Immediate, recent, and remote estimated grossly intact. INTELLIGENCE: Average based on interview. INSIGHT AND JUDGMENT: Considered grossly intact in the absence of alcohol use. Will consider to monitor for overall improvement in cognition as alcohol withdrawal treated to completion, and patient starts getting restorative sleep. ASSESSMENT This is a 77-year-old male who is not believed to have been on the floor here for alcohol treatment before at [facility]. Will continue to monitor, treat alcohol withdrawal to completion. May initiate trazodone in low dose to help improve sleep. Will restart Norvasc at low dose as well for hypertension and continue to monitor. DIAGNOSES PER DIAGNOSTIC AND STATISTICAL MANUAL OF MENTAL DISORDERS, FIFTH EDITION 1. Alcohol withdrawal. 2. Alcohol use disorder, severe. 3. Stressors of alcoholism. PLAN 1. Admit to the unit. 2. Necessary precautions to be implemented. 3. Patient will participate in individual and group therapy. 4. Medications will be administered and titrated accordingly. 5. Collateral information to be obtained as necessary. 6. Estimated length of stay three to five days. MTDD
--- NOTE | 2018-03-09 18:24 | EKG ---
FACILITY: [facility] [place] PATIENT NAME: JEROMY COX : [id number] MR: [id number] V: [id number] EXAM DATE: ORDERING PHYSICIAN: CHRISTIE VINSON TECHNOLOGIST: Test Reason : repeat, previous abnormal Blood Pressure : / mmHG Vent. Rate : 062 BPM Atrial Rate : 062 BPM P-R Int : 268 ms QRS Dur : 084 ms QT Int : 442 ms P-R-T Axes : 037 -53 -14 degrees QTc Int : 448 ms Sinus rhythm with 1st degree AV block with premature atrial complexes Left axis deviation Septal infarct (cited on or before 08-MAR-2018) T inversion consistent with inferior ischemia vs normal variant When compared with ECG of 08-MAR-2018 15:37, premature atrial complexes are now present Now T inversion in aVF of unclear significance Confirmed by ELSI HILLMAN ([id number]) on 03/09/2018 6:45:12 PM Referred By: Confirmed By:ELSI HILLMAN
[2018-03-09 21:30] VITALS: BP 154/96
[2018-03-09] MEDS: traZODone HCL 50 MG TAB PO SCH (21:32)
[2018-03-10 04:15] VITALS: BP 160/92
[2018-03-10] MEDS: THIAMINE HCL 100 MG TAB PO SCH (08:02)
[2018-03-10] MEDS: MULTIVITAMINS PO SCH (08:03)
[2018-03-10] MEDS: amLODIPine BESYL(*) 5 MG TAB PO SCH (08:03)
[2018-03-10] MEDS: FOLIC ACID 1 MG TAB PO SCH (08:03)
[2018-03-10 09:00] VITALS: BP_SYST 122; BP_SYST 125; BP_DIAS 68; BP_DIAS 72
--- NOTE | 2018-03-10 10:47 | BHS Progress Note ---
S - Subjective Progress Notes Subjective "Drinking too frequently or too much is a problem at this point and time but I' m a happy drunk." "AA and [facility] left me cold." States doesn't drink daily, drinks Vodka and Whiskey, not specific about amounts Depression "based on self, moderate" Sleep variable at times, "I get up and have a bump." Energy level "gone to hell because of this forced incarceration" Appetite sufficient Suicidal Ideation: None Homicidal Ideation: None S - Objective Physical Exam Vital Signs Vital Signs Date Time Temp Pulse Resp B/P (MAP) Pulse Ox O2 Delivery O2 Flow Rate FiO2 03/10/18 09:00 98.2 68 16 122/72 (89) 91 Room Air Deferred Laboratory Tests Test 03/09/18 13:00 03/09/18 14:26 03/09/18 16:12 Urine Color Yellow Urine Clarity Clear Urine pH 7.0 pH Urine Specific Edmond 1.015 Urine Protein 30 mg/dL Urine Glucose (UA) Negative mg/dL Urine Ketones Negative mg/dL Urine Blood Negative Urine Nitrite Negative Urine Bilirubin Negative Urine Urobilinogen 4.0 mg/dL Urine Leukocyte Esterase Negative Urine RBC 1 /HPF Urine WBC <1 /HPF Urine Squamous Epithelial Cells None /LPF Urine Bacteria Negative /HPF Urine Mucus None /HPF Prostate Specific Antigen Pending Free Thyroxine Pending Vitamin B12 Level Pending Free Triiodothyronine Pending Current Medications Medications (Trade) Dose Ordered Sig/James Route PRN Reason Start Time Stop Time Status Last Admin Dose Admin Al Hydrox/Mg Hydrox/Simethicone (Maalox(*) 30 ml Udcup (Or Equiv)) 30 ml Q4H PRN PO DYSPEPSIA 03/08/18 18:15 04/07/18 18:14 Multivitamins (Thera-M Enhanced Tab (Or Equiv)) 1 each QDAY PO 03/09/18 09:00 04/08/18 08:59 03/10/18 08:03 Thiamine HCl (Vitamin B-1(*) 100 Mg Tab (Or Equiv)) 100 mg QDAY PO 03/09/18 09:00 04/08/18 08:59 03/10/18 08:02 Folic Acid (Folic Acid (*) 1 Mg Tab) 1 mg QDAY PO 03/09/18 09:00 04/08/18 08:59 03/10/18 08:03 Diazepam (Valium(*) 10 Mg Tab (Or Equiv)) 10-20 MG PRN PRN PO FOLLOW CIWA PROTOCOL 03/08/18 18:15 03/22/18 18:14 Diazepam (Valium(*) 5 Mg Tab (Or Equiv)) 5 mg ONCE ONCE PO 03/09/18 12:20 03/09/18 12:21 DC 03/09/18 12:23 Amlodipine Besylate (Norvasc(*) 2.5 Mg Tab (Or Equiv)) 2.5 mg ONCE ONCE PO 03/09/18 13:00 03/09/18 13:01 DC 03/09/18 13:10 Amlodipine Besylate (Norvasc(*) 5 Mg Tab (Or Equiv)) 5 mg QDAY PO 03/10/18 09:00 04/09/18 08:59 03/10/18 08:03 Trazodone HCl (Desyrel 50 Mg Tab (Or Equiv)) 50 mg QHS PO 03/09/18 21:00 04/08/18 20:59 03/09/18 21:32 Diazepam (Valium(*) 5 Mg Tab (Or Equiv)) 5 mg ONCE ONCE PO 03/09/18 22:25 03/09/18 22:31 DC 03/09/18 22:25 Muscle Strength and Tone: WNL Gait and Station: Unsteady, Other (use of walker, slow guarded gait) BHS Medications Reviewed: Side Effects, Benefits of Medication, Risks Allergies Reviewed: Yes Mental Status Exam General Appearance: Casual, Well Groomed, Good Eye Contact, Cooperative, Polite , Good Interaction Speech: Clear, Spontaneous, Normal Rate, Normal Rhythm, Normal Volume, Normal Tone Mood: Dysthmic/Depressed Affect: Full and Appropriate, Calm, Neutral Thought Process: Organized, Logical, Goal Directed, No Loose Associations, No Flight of Ideas Thought Content: No Suicidal Ideation, No Homicidal Ideation, No Delusions, No Auditory Halllucinations, No Visual Hallucinations, No Thought Broadcasting, No Ideas of Reference, No Obsessions, No Compulsions Sensorium: Clear Cognition: Alert & Oriented-Person, Alert & Oriented-Place, Alert & Oriented- Time, Nkdrx-Ptecmgtf-Mdlqgdhzx Memory: Immediate, Recent, Remote Intelligence: Average Insight Judgment: Fair Imaging Vital Signs Date Time Temp Pulse Resp B/P (MAP) Pulse Ox O2 Delivery O2 Flow Rate FiO2 03/10/18 09:00 98.2 68 16 122/72 (89) 91 Room Air BHS Assessment and Plan [id number] Encounter Date: Mar 10, 2018 Dsic-au-Leef Encounter Time: 10:43 [facility] Plan: Admit to Unit, Necessary Precautions, Individual/Group Therapy, Admin /Titrate Meds, Educate Patient Multpiple Antipsychotics Used: No Problems: (1) Alcohol use disorder, moderate, dependence Status: Chronic (2) Alcohol withdrawal Status: Resolved Condition Treatment team Monday03/12/18 Continue current medication and treatment Review outpatient substance abuse treatment options Discontinue CIWA, maintain fall precautions EFREN DUNLAP NP Mar 10, 2018 10:47
[2018-03-10 19:37] VITALS: BP 154/99
[2018-03-10] MEDS: traZODone HCL 50 MG TAB PO SCH (21:15)
[2018-03-11 01:47] VITALS: BP 158/98
[2018-03-11 07:40] VITALS: BP 148/82
[2018-03-11] MEDS: amLODIPine BESYL(*) 5 MG TAB PO SCH (08:23)
[2018-03-11] MEDS: MULTIVITAMINS PO SCH (08:23)
[2018-03-11] MEDS: THIAMINE HCL 100 MG TAB PO SCH (08:23)
[2018-03-11] MEDS: FOLIC ACID 1 MG TAB PO SCH (08:23)
[2018-03-11] MEDS ORDERED: HYPROMELLOSE 0.4% LUB 15ML BTL OU PRN (13:20)
--- NOTE | 2018-03-11 15:23 | BHS Progress Note ---
[facility] - Subjective Progress Notes Subjective "I'm doing ok but didn't sleep that well." Denies urge to drink, long standing history of excess alcohol intake and verbalizes desire to quit drinking. Ambulating w/assist of walker with slow gait, reading, eating and drinking fluids well Alcohol withdrawal considered complete. Suicidal Ideation: None Homicidal Ideation: None S - Objective Physical Exam Vital Signs Vital Signs Date Time Temp Pulse Resp B/P (MAP) Pulse Ox O2 Delivery O2 Flow Rate FiO2 03/11/18 01:47 97.8 61 158/98 (118) 90 Room Air 03/10/18 09:00 16 Muscle Strength and Tone: WNL Gait and Station: Unsteady (assist from walker), Other (slow guarded gait) [facility] Medications Reviewed: Side Effects, Benefits of Medication, Risks Allergies Reviewed: Yes Mental Status Exam General Appearance: Casual, Well Groomed, Good Eye Contact, Cooperative, Polite , Good Interaction Speech: Clear, Spontaneous, Normal Rate, Normal Rhythm, Normal Volume, Normal Tone Mood: No Dysthmic/Depressed, Euthymic Affect: Full and Appropriate, Calm, Neutral Thought Process: Organized, Logical, Goal Directed, No Loose Associations, No Flight of Ideas Thought Content: No Suicidal Ideation, No Homicidal Ideation, No Delusions, No Auditory Halllucinations, No Visual Hallucinations, No Thought Broadcasting, No Ideas of Reference, No Obsessions, No Compulsions Sensorium: Clear Cognition: Alert & Oriented-Person, Alert & Oriented-Place, Alert & Oriented- Time, Qjalk-Huczklwk-Lhfclutfs Memory: Immediate, Recent, Remote Intelligence: Average Insight Judgment: Fair [facility] Assessment and Plan Pdwk-[id number]-[id number] Encounter Date: Mar 11, 2018 Abgm-ny-Drav Encounter Time: 10:30 [facility] Plan: Admit to Unit, Necessary Precautions, Individual/Group Therapy, Admin /Titrate Meds, Educate Patient Multpiple Antipsychotics Used: No Problems: (1) Alcohol use disorder, moderate, dependence Status: Chronic (2) Alcohol withdrawal Status: Resolved Condition Continue current medications and treatment Treatment team 03/12/18 Increase Trazadone to 100 mg po every pm Maintain precautions EFREN DUNLAP NP Mar 11, 2018 15:23
[2018-03-11 18:16] VITALS: BP 158/78
[2018-03-11] MEDS: traZODone HCL 50 MG TAB PO SCH (21:29)
[2018-03-12 06:06] VITALS: BP 150/95
[2018-03-12] MEDS: MULTIVITAMINS PO SCH (08:55)
[2018-03-12] MEDS: THIAMINE HCL 100 MG TAB PO SCH (08:55)
[2018-03-12] MEDS: amLODIPine BESYL(*) 5 MG TAB PO SCH (08:55)
[2018-03-12] MEDS: FOLIC ACID 1 MG TAB PO SCH (08:55)
--- NOTE | 2018-03-12 12:07 | BHS Progress Note ---
[facility] - Subjective Progress Notes Subjective Patient continues to improve, ambulation is somewhat restricted, Notably patient lives in basement apartment and stairs are a concern. Will have OT/PT evaluate today, and set up home health concerning patient's probable discharge tomorrow. No other concerns. Suicidal Ideation: None Homicidal Ideation: None [facility] - Objective Physical Exam Vital Signs Vital Signs Date Time Temp Pulse Resp B/P (MAP) Pulse Ox O2 Delivery O2 Flow Rate FiO2 03/12/18 06:06 98.6 69 15 150/95 (113) 88 Room Air Muscle Strength and Tone: WNL Gait and Station: Unsteady (assist from walker), Other (slow guarded gait) [facility] Medications Reviewed: Side Effects, Benefits of Medication, Risks Allergies Reviewed: Yes Mental Status Exam General Appearance: Casual, Well Groomed, Good Eye Contact, Cooperative, Polite , Good Interaction, No Unkept, No Tearful, No Psychomotor Agitation, No Psychomotor Retardation, No Bizarre Mannerisms, No Tics Speech: Clear, Spontaneous, Normal Rate, Normal Rhythm, Normal Volume, Normal Tone, No Garbled, No Rambling Mood: No Dysthmic/Depressed, Euthymic Affect: Full and Appropriate, Calm, Neutral Thought Process: Organized, Logical, Goal Directed, No Loose Associations, No Flight of Ideas Thought Content: No Suicidal Ideation, No Homicidal Ideation, No Delusions, No Auditory Halllucinations, No Visual Hallucinations, No Thought Broadcasting, No Ideas of Reference, No Obsessions, No Compulsions Sensorium: Clear Cognition: Alert & Oriented-Person, Alert & Oriented-Place, Alert & Oriented- Time, Xlmha-Bxznuhcw-Dnfnnldyk Memory: Immediate, Recent, Remote Intelligence: Average Insight Judgment: Fair [facility] Assessment and Plan Rtax-va-Jamz Encounter Date: Mar 12, 2018 Hvyd-[id number] Encounter Time: 10:00 [facility] Plan: Admit to Unit, Necessary Precautions, Individual/Group Therapy, Admin /Titrate Meds, Educate Patient Multpiple Antipsychotics Used: No Problems: (1) Alcohol withdrawal Status: Resolved (2) Alcohol use disorder, moderate, dependence Status: Chronic Condition 1. continue treatment. 2. plan for discharge to home tomorrow. 3. home health help in place. 4. PT/OT today. Problem Qualifiers (1) Alcohol withdrawal: Complication of substance-induced condition: with delirium Qualified Codes: F10.231 - Alcohol dependence with withdrawal delirium CHRISTIE VINSON MD Mar 12, 2018 12:07
[2018-03-12] MEDS: HYPROMELLOSE 0.4% LUB 15ML BTL OD PRN (20:13)
[2018-03-12] MEDS: traZODone HCL 50 MG TAB PO SCH (20:44)
[2018-03-12 21:01] VITALS: BP 135/84
[2018-03-13 04:17] VITALS: BP 157/101
[2018-03-13] MEDS: amLODIPine BESYL(*) 5 MG TAB PO SCH (08:26)
[2018-03-13] MEDS: FOLIC ACID 1 MG TAB PO SCH (08:26)
[2018-03-13] MEDS: MULTIVITAMINS PO SCH (08:26)
[2018-03-13] MEDS: THIAMINE HCL 100 MG TAB PO SCH (08:26)
[2018-03-13] MEDS ORDERED: TRAZ150T8 PO (09:06)
[2018-03-13] MEDS ORDERED: FOLI-68 PO (09:09)
[2018-03-13] MEDS ORDERED: AMLO-101 PO (09:09)
[2018-03-13] MEDS ORDERED: THIA100T2 PO (09:10)
[2018-03-13] MEDS ORDERED: MULT-1379 PO (09:10)
[2018-03-13] MEDS ORDERED: DEXT15DR OP (09:11)
[2018-03-13] MEDS: HYPROMELLOSE 0.4% LUB 15ML BTL OD PRN (14:02)
--- NOTE | 2018-03-14 20:02 | SCHAAF DISCHARGE ---
DATE OF ADMISSION: March 08, 2018 DATE OF DISCHARGE: March 13, 2018 Patient was seen on March 13, 2018, at approximately 0900 for note concerning this dictation. FINAL DIAGNOSES 1. Alcohol use disorder, severe. 2. Nocturnal hypoxia. 3. Hypertension. 4. Some social isolation. REASON FOR ADMISSION This is a very pleasant, 77-year-old male who lives independently and alone, patient suffering from long-term abuse of alcohol. Patient had decided to quit on his own at home, patient then later coming to the Emergency Room with symptoms including the start of delirium tremens. The patient was admitted to the Behavioral Health Unit for completion of alcohol withdrawal management. Patient remained cooperative on the unit. The patient required minimal to moderate dose of benzodiazepines concerning withdrawal. This was treated to completion. Patient having some difficulty with ambulation. It slowly improved on the unit as well. Patient denying any other symptoms of concerns. PHYSICAL EXAMINATION Please see emergency room note. Notable for: GENERAL: A 77-year-old male with impaired mobility in no acute physical distress. Withdrawal quickly managed with benzodiazepines. Patient transferred to [facility]. VITAL SIGNS: Vital signs at the time of admission, temperature 98.9, pulse 81, respiratory rate 16, blood pressure 191/114, pulse oximetry 91% on room air. At time of discharge from Behavioral Health Unit, vital signs showed temperature 98.7, pulse 67, respiratory rate 15, blood pressure 157/101, and pulse oximetry 91% on room air. LABORATORY DATA Urinalysis on March 09, 2018, overall unremarkable. Some protein in urine and urobilinogen present. Vitamin B12 within normal limits, 672. PSA 3.30, in normal limits. Free T4 of 0.80 with a free T3 of 2.8, all within normal limits. MCV noted to be elevated at 106.7, MCH elevated at 37.1, platelet count 174,000. Chemistry panel notable for total bilirubin elevated slightly at 1.6 with an AST of 59. Magnesium slightly low at 1.6. TSH 2.53. Serum alcohol level undetectable at time of admission. MENTAL STATUS EXAMINATION GENERAL APPEARANCE, BEHAVIOR, AND ATTITUDE: This is a cooperative, polite, 77- year-old male making good eye contact, interacting well with treatment team staff and this provider and family members. No bizarre mannerisms or tics. No periods of tearfulness. SPEECH: Within normal limits. Regular rate, rhythm, volume and tone. MOOD: Described as good. AFFECT: Full and bright. THOUGHT PROCESSES: Logical, goal directed. No loose associations or flight of ideas. THOUGHT CONTENT: Auditory and visual hallucinations associated with delirium had resolved. No ideas of reference, thought broadcastings, delusions, obsessions, compulsions. The patient adamantly denying suicidal or homicidal ideation. SENSORIUM: Clear. COGNITION: Alert and oriented to person, place, time, and situation. MEMORY: Immediate, recent, and remote estimated intact. INTELLIGENCE: Average based on interview. INSIGHT AND JUDGMENT: Considered grossly intact in the absence of alcohol use for continued outpatient care.. RESULTS OF TESTING IMAGING: None. LABORATORY DATA: See above. CONSULTATIONS Patient was seen by PT and OT for concerns of navigating stairs. Please see electronic record. TREATMENT Patient received medications, participated in individual and group therapy. HOSPITAL COURSE Patient was very pleasant and cooperative throughout his stay. Patient initially having hallucinations, likely associated with delirium tremens. Alcohol withdrawal was treated to completion, and patient continued to improve. Patient was restarted on Norvasc and trazodone while on the unit with good results. CONDITION OF PATIENT ON DISCHARGE Stable. Considered a minimal risk to himself or others and appropriate for ongoing outpatient care. DISPOSITION Patient discharged to home. He would continue to abstain from all alcohol. The patient was visited by AA members on the unit. Patient was encouraged to follow up with home health, including [facility] program, go to AA, and obtain a sponsor. Patient was scheduled a sleep study due to measurable low O2 sats nocturnally. Patient would also abstain from Tylenol and acetaminophen- containing products. He was given the crisis line should symptoms return. Patient was encouraged to follow up with primary care provider for further evaluation of hypertension in the absence of alcohol use. DISCHARGE MEDICATIONS 1. Trazodone 50 to 150 mg p.o. at bedtime for sleep. 2. Folic acid 1 mg daily. 3. Norvasc 5 mg daily. 4. Multivitamin with minerals daily. 5. Vitamin B1 100 mg daily. 6. Patient could use Natural Balance Tears over the counter as well. The risks, benefits and alternatives of above discharge plan were discussed. Informed consent was given to proceed with the above discharge plan by this competent patient and the patient's family members present at time of discharge. [facility]
== END 2018-03-13 15:43 | disposition home or self-care (01) | DRG 897 ==
LOC: BHS 16:43
PROVIDERS: ADMIT Psychiatry & Neurology Psychiatry; ATTEND Psychiatry & Neurology Psychiatry
DX: F10.231 Alcohol dependence with withdrawal delirium (principal); K21.9 Gastro-esophageal reflux disease without esophagitis; I10 Essential (primary) hypertension; G47.34 Idiopathic sleep related nonobstructive alveolar hypoventilation; Y90.0 Blood alcohol level of less than 20 mg/100 ml; Z60.4 Social exclusion and rejection; Z81.1 Family history of alcohol abuse and dependence
CPT/HCPCS: 80320; 80329; 81001; 82040; 82247; 82310; 82374; 82435; 82565; 82607; 82947; 83735; 84075; 84132; 84153; 84155; 84295; 84439; 84443; 84450; 84460; 84481; 84520; 85025; 93005; 96361; 96374; 97161; 97166; 99284; J2060; J3411; J3475; J7030

== ENCOUNTER → 2018-03-26 | Outpatient (CLI) | payer MEDICARE, OTHER ==
[2018-01-25 08:48] VITALS: BMI 22.5
[~2018-03-26] MED LIST changes: +AMLO-101 PO; +DEXT15DR OP; +MULT-1379 PO; +PNEU0.5D3 IM; +THIA100T2 PO; +TRAZ150T8 PO
[2018-03-26 11:47] LABS: PLATELET COUNT, AUTOMATED 338 K/uL (150-450)
== END ==
LOC: LAB 11:29
PROVIDERS: ATTEND Internal Medicine
DX: F10.239 Alcohol dependence with withdrawal, unspecified (principal); I10 Essential (primary) hypertension
CPT/HCPCS: 36415; 82040; 82247; 82310; 82374; 82435; 82565; 82947; 83735; 84075; 84132; 84155; 84295; 84450; 84460; 84520; 85025

== ENCOUNTER → 2018-10-16 | Outpatient (CLI) | payer MEDICARE, OTHER ==
[2018-01-25 08:48] VITALS: BMI 22.5
[~2018-10-16] MED LIST changes: +AMLO-125 PO; +AMLO-127 PO; -AMLO-96 PO; -AMLO-99 PO; +FLU180SY11 IM; +TAMS0.4C25 PO
[2018-10-16 09:34] LABS: PLATELET COUNT, AUTOMATED 230 K/uL (150-450)
== END ==
LOC: LAB 09:13
PROVIDERS: ATTEND Internal Medicine
DX: I10 Essential (primary) hypertension (principal); F10.21 Alcohol dependence, in remission
CPT/HCPCS: 36415; 82040; 82247; 82310; 82374; 82435; 82565; 82947; 84075; 84132; 84155; 84295; 84443; 84450; 84460; 84520; 84550; 85025